=== PATIENT | female | born 1940 | race Caucasian/White ===

== ENCOUNTER 2021-04-21 18:37 | Inpatient (IN) | payer MEDICARE, OTHER, SELFPAY ==
[2021-04-21] VITALS (13 sets, daily range): BP systolic 127–156; BP diastolic 55–83; PULSE 54–62; RESP 14–22; TEMP 35.7–37; O2SAT 97–100; BMI 26.4
--- NOTE | 2021-04-21 18:44 | ECG_ITS ---
Measurements Intervals [place] Rate: 53 P: 127 ME: 193 QRS: 185 QRSD: 86 T: 165 QT: 482 QTc: 454 Interpretive Statements SINUS BRADYCARDIA ARM LEADS REVERSED INCOMPLETE RIGHT BUNDLE BRANCH BLOCK BASELINE ARTIFACT- I, II, AVR BORDERLINE ECG Electronically Signed On 04-22-2021 7:29:25 CDT by Christopher Berg D.O.
[2021-04-21 19:16] LABS: Basophils Absolute Auto 0.1 K/mm3 (0.0-0.1); Basophils Percent Auto 1.4 % (0.2-1.2); Eosinophils Absolute Auto 0.2 K/mm3 (0-0.3); Eosinophils Percent Auto 3.4 % (0-4.4); Hematocrit 22.7 % (37.0-47.0); Immature Granulocyte Absolute 0.01 K/mm3 (0.00-0.031); Immature Granulocyte Percent A 0.2 % (0-0.5); Lymphocytes Absolute Auto 1.47 K/mm3 (0.9-3.2); Lymphocytes Percent Auto 25.3 % (18.3-44.2); Mean Corpuscular HGB Conc 24.7 g/dl (32-36); Mean Corpuscular Hemoglobin 15.6 pg (26-34); Mean Corpuscular Volume 63.1 fl (80-100); Mean Platelet Volume 8.7 fl (7.4-10.4); Monocytes Absolute Auto 0.8 K/mm3 (0.1-0.6); Neutrophils Absolute Auto 3.2 K/mm3 (1.3-6.7); Neutrophils Percent Auto 55.7 % (45.5-73.1); Nucleated Red Blood Cells Perc 0.5 % (0.0-0.2); Platelet Count Result 325 k/mm3 (150-375); Red Cell Distribution Width 21.3 % (11.5-14.5); White Blood Count 5.8 K/mm3 (4.5-10.0)
[2021-04-21 19:25] LABS: Hemoglobin 5.6 g/dL (12.0-15.0); Platelet Estimate Adequate (Adequate)
[2021-04-21 19:26] LABS: Alanine Aminotransferase 34 U/L (4-35); Albumin Level 4.2 g/dL (3.5-5.1); Alkaline Phosphatase 75 U/L (38-126); Anion Gap 7 mmol/L (8-16); Anisocytosis 2+ (NORMAL); Aspartate Amino Transferase 37 U/L (14-36); Bilirubin,Total 0.6 mg/dL (0.2-1.3); Blood Urea Nitrogen 16 mg/dL (7-17); Calcium 8.8 mg/dL (8.4-10.2); Carbon Dioxide 23 mmol/L (22-30); Chloride 104 mmol/L (98-107); Estimated CRCL calculation 30 ml/min; Estimated Glomerular Filt Rate 43; Glucose 119 mg/dL (65-110); Hypochromasia 2+ (NORMAL); Potassium 4.3 mmol/L (3.4-5.0); Sodium 134 mmol/L (137-145)
[2021-04-21 19:29] LABS: Ovalocytes 2+ (NORMAL); Stomatocytes 1+ (NORMAL); Target Cells 1+ (NORMAL); Tear Drop Cells 1+ (NORMAL)
--- NOTE | 2021-04-21 19:48 | ED.GENADULT ---
HPI - General Adult General Chief complaint: Recheck/Abnormal Lab/Rx Stated complaint: low blood count Time Seen by Provider: 04/21/21 19:35 Source: patient History of Present Illness HPI narrative: Patient is 81 y/o female complaining of severe SOB for a while. She states that exertion like going upstairs aggravates her SOB. She has no cough, chest pain or abdominal pain. She had labs done yesterday and she was told by her doctor to come here for low H/H. She is on Xarelto for A fib. She did not notice any bleeding. She denies blood in stool or dark stool. Related Data Home Medications Medication Instructions Recorded Confirmed atorvastatin 20 mg tablet 20 mg PO DAILY 12/06/19 04/30/21 dronedarone 400 mg tablet 400 mg PO BID tablet 12/06/19 04/30/21 losartan 50 mg tablet 50 mg PO DAILY 12/06/19 04/30/21 metoprolol tartrate 50 mg tablet 75 mg PO BID tablet 12/06/19 04/30/21 Allergies Allergy/AdvReac Type Severity Reaction Status Date / Time lisinopril Allergy Mild Cough Verified 04/30/21 10:32 cefprozil Allergy Unknown Rash Verified 04/30/21 10:32 Review of Systems Constitutional: Constitutional: Denies chills, Denies fever(s), Denies headache(s) and Reports weakness Eyes: Eyes: Denies blurry vision ENT: Denies headache(s) and Denies neck pain Cardiovascular: Cardiovascular: Denies chest pain and Reports dyspnea Respiratory: Respiratory: Denies cough and Reports dyspnea Gastrointestinal: Gastrointestinal: Denies abdominal pain, Denies diarrhea, Denies nausea and Denies vomiting Genitourinary: Genitourinary: Denies hematuria and Denies dysuria Musculoskeletal: Musculoskeletal: Denies back pain and Denies neck pain Neurologic: Denies headache(s) and Reports weakness PMFSH Past Medical History Medical History (Updated 04/30/21 @ 14:57 by Zoë Polanco MD) Acute blood loss anemia Bunion 1970 Cancer of breast 1991 Gastric ulcer Hx of retirement use of blood thinners Migraine aura without headache Paroxysmal atrial fibrillation Unspecified vitamin D deficiency Surgical History Surgical History H/O lumpectomy 1992 H/O nasal septoplasty Hx of hysterectomy 1974 Family History Family History Mother Depression Family history of glaucoma Hypertension Patient's mother is , Onset Age: 94 Family history of cardiovascular disease Father Patient's father is Social History Social History Alcohol intake: never Substance use: never Gender identity (if verbalized by the patient): Female Spiritual care concerns: No Exam Const: General: no acute distress and well developed Orientation/consciousness: oriented to person, oriented to place, oriented to time and patient oriented x3 HENMT: Head: normocephalic Ears: external ears normal General nose exam: Normal external nose present Eyes: General: appearance normal, both eyes and all related structures Conjunctivae: conjunctivae normal Neck: Neck: normal visual inspection and full ROM Chest: Chest palpation & inspection: normal inspection of the chest and no tenderness Resp: Effort & Inspection: normal respiratory effort Auscultation: clear to auscultation bilaterally Cardio: Rate: regular rate Rhythm: regular rhythm GI: GI Palp: No abdominal tenderness and Yes Soft to palpation Skin: General skin exam: normal color and turgor normal Neuro: General: oriented to person, oriented to place, oriented to time and patient oriented x3 Cognition (Neuro): normal cognition Extrem: General: normal to inspection, full ROM and no pedal edema Psych: Appearance: grossly normal Mental Status: mental status grossly normal Affect: normal affect Course Consultations Consultation #1: Discussed with Dr. Bragg, who agrees to admit. Date: 04/21/21 Time
[2021-04-21] MEDS: SODIUM CHLORIDE 0.9% IV 250 ML 30 ML IV CONT (20:42)
[2021-04-21] MEDS: TUBING, BLOOD PLUM PUMP TUBING 1 EACH XX (20:42)
--- NOTE | 2021-04-21 21:14 | PM.IMHP ---
H&P: HPI History of Present Illness Date/Time: 04/21/21 21:14 Chief Complaint: LOW HEMOGLOBIN Narrative: THIS IS AN 81-YEAR-OLD FEMALE WITH PAST MEDICAL HISTORY SIGNIFICANT FOR ATRIAL FIBRILLATION RATE CONTROL AND ANTICOAGULATED, HYPERTENSION, DYSLIPIDEMIA. PATIENT PRESENTED TO HER PRIMARY CARE PHYSICIAN'S OFFICE DUE TO FATIGUE LACK OF ENERGY AND DIZZINESS SHORTNESS OF BREATH WITH MINIMAL EXERTION. 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 AFTER OBTAINING THESE RESULTS HER PRIMARY CARE PHYSICIAN AFTER TO COME TO THE EMERGENCY ROOM REPEATED HEMOGLOBIN IN THE EMERGENCY ROOM SHOW EQUALLY LOW VALUE. Review of Systems Review of Systems: Narrative: ABNORMAL LAB WORK Constitutional: Constitutional: Denies chills, Reports fatigue, Denies fever(s) and Reports lethargy Eyes: Eyes: Denies change in vision ENT: Denies dysphagia, Denies nasal congestion, Denies nasal discharge, Denies nasal obstruction and Denies odynophagia Cardiovascular: Cardiovascular: Denies chest pain with activity, Denies syncope, Denies irregular heart rhythm, Denies radiating jaw, neck or arm pain, Denies palpitations, Reports dyspnea and Reports dyspnea on exertion Respiratory: Respiratory: Denies cough Gastrointestinal: Gastrointestinal: Denies melena, Denies dyspepsia, Denies heartburn, Denies diarrhea, Denies nausea, Denies vomiting and Denies hematemesis Genitourinary: Genitourinary: Reports no additional female genitourinary complaints Musculoskeletal: Musculoskeletal: Reports no additional musculoskeletal complaints Integumentary/Breasts: Skin/Breast: Reports system reviewed and no additional complaints, except as docu Neurologic: Reports system reviewed and no additional complaints, except as documented Psychiatric: Psychiatric: Reports no additional psychiatric complaints Endocrine: Endocrine: Reports no additional endocrine complaints Hematologic/Lymphatic: Hematologic/Lymphatic: Reports no additional hematologic/lymphatic complaints Allergic/Immunologic: Allergic/Immunologic: Reports no additional allergic/immunologic complaints PMF Past Medical History Medical History Acute blood loss anemia Bunion 1970 Cancer of breast 1991 Gastric ulcer Migraine aura without headache Paroxysmal atrial fibrillation Unspecified vitamin D deficiency Surgical History Surgical History H/O lumpectomy 1992 H/O nasal septoplasty Hx of hysterectomy 1973 Family History Family History Mother Depression Family history of glaucoma Hypertension Patient's mother is , Onset Age: 94 Family history of cardiovascular disease Father Patient's father is Social History Social History Smoking status: Never smoker Alcohol intake: never Substance use: never Gender identity (if verbalized by the patient): Female Sexual Orientation (if Verbalized by the Patient): Straight or Heterosexual Spiritual care concerns: No Meds Home Medications and Allergies Home Medications Medication Instructions Recorded Confirmed Type atorvastatin 20 mg tablet 20 mg PO DAILY 12/06/19 04/03/21 History dronedarone 400 mg tablet 400 mg PO BID tablet 12/06/19 04/03/21 History losartan 50 mg tablet 50 mg PO DAILY 12/06/19 04/03/21 History metoprolol tartrate 50 mg tablet 75 mg PO BID tablet 12/06/19 04/03/21 History rivaroxaban 20 mg tablet See Rx Instructions .ROUTE 12/19/20 04/03/21 Rx .COMPLEX #90 tablet Allergies Allergy/AdvReac Type Severity Reaction Status Date / Time lisinopril Allergy Mild Cough Verified 04/21/21 20:57 cefprozil Allergy Unknown Rash Verif
--- NOTE | 2021-04-21 22:34 | ADMGEN ---
This patient, Yadi Bustos, was admitted to Medical Room 342-01. Patient/family oriented to hospital policies and general routines including ID bracelet, bed and alarms, visiting hours, pain management, procedures, bathroom and other care routines, personal items, smoking policy, room service/diet, and visiting hours. Information on how to activate the Rapid Response Team has been discussed. Patient/Family are encouraged to report perceived risks to care and to ask questions if they do not understand what they are told or what they should do.
[2021-04-22] VITALS (14 sets, daily range): BP systolic 122–157; BP diastolic 54–85; PULSE 52–70; RESP 15–67; TEMP 35.7–36.6; O2SAT 96–100
[2021-04-22] MEDS: METOPROLOL TARTRATE 25 MG TABLET 75 MG PO (08:39)
[2021-04-22] MEDS: ATORVASTATIN 20 MG TABLET PO (08:39)
[2021-04-22] MEDS: LOSARTAN POTASSIUM 50 MG TABLET PO (08:40)
[2021-04-22] MEDS: DRONEDARONE HCL 400 MG TABLET PO (08:40)
[2021-04-22 09:00] LABS: Hematocrit 31.4 % (37.0-47.0); Mean Corpuscular HGB Conc 28.7 g/dl (32-36); Mean Corpuscular Hemoglobin 19.5 pg (26-34); Mean Platelet Volume 8.6 fl (7.4-10.4); Platelet Count Result 291 k/mm3 (150-375); Red Blood Count 4.62 M/mm3 (4.2-5.4); Red Cell Distribution Width 25.8 % (11.5-14.5); White Blood Count 7.4 K/mm3 (4.5-10.0)
[2021-04-22 09:13] LABS: Alanine Aminotransferase 29 U/L (4-35); Alkaline Phosphatase 70 U/L (38-126); Anion Gap 9 mmol/L (8-16); Aspartate Amino Transferase 29 U/L (14-36); Bilirubin,Total 0.9 mg/dL (0.2-1.3); Blood Urea Nitrogen 11 mg/dL (7-17); Carbon Dioxide 23 mmol/L (22-30); Chloride 105 mmol/L (98-107); Estimated CRCL calculation 32 ml/min; Estimated Glomerular Filt Rate 47; Glucose 99 mg/dL (65-110); Potassium 4.2 mmol/L (3.4-5.0); Sodium 137 mmol/L (137-145)
--- NOTE | 2021-04-22 10:31 | PM.IMPN ---
Progress Note: A&P Assessment and Plan (1) Acute blood loss anemia: Code(s): D62 - Acute posthemorrhagic anemia Status: Acute Assessment and Plan: H/H trend 5.7, 5.6, 9.0 Received 2 units of PRBC (04/22/21) hemoglobin up to 9.0 Will continue to trend H/H Q4hr GI Consult thank you for you recommendation transfuse as needed Hold Rivaroxaban 20mg PO daily Cardiac tele monitor Q4hr VS NPO diet Supposed to go to EGD today, however, did eat this morning (2) Anemia: Code(s): D64.9 - Anemia, unspecified Status: Acute Assessment and Plan: H/H 5.6/27.7 MCV 68.0 Patient stated that she craves water will repeat anemia labs Will supplement as needed. (3) Paroxysmal atrial fibrillation: Code(s): I48.0 - Paroxysmal atrial fibrillation Status: Acute Assessment and Plan: Rate controlled Continue home metoprolol 75 mg PO BID Hold rivaroxaban 20mg PO until source of bleed is noted (4) Nonrheumatic mitral (valve) insufficiency: Code(s): I34.0 - Nonrheumatic mitral (valve) insufficiency Status: Acute Assessment and Plan: Follow up as outpatient (5) Mixed hyperlipidemia: Code(s): E78.2 - Mixed hyperlipidemia Status: Acute Assessment and Plan: Atorvastatin 20mg PO daily Lipid panel in the am (6) Laryngopharyngeal reflux disease: Code(s): K21.9 - Gastro-esophageal reflux disease without esophagitis Status: Acute Assessment and Plan: PPIs if needed Subjective Date/time seen: 04/22/21 09:23 Interval history: This is an 81 year old female with a past medical history of a. fib, HTN, HLD, who presented to the ED with complaints of shortness of breath with activity. She stated that it started about a month ago and she really noticed it getting worse when she would come up the stairs she would be panting or just general walking throughout her house. She also stated that she has been craving water for the last several months, to the extreme that she would wake up in the middle of the night just to get some water. She denies chest pain, palpitations, nausea, vomiting, constipation, diarrhea, abdominal pain, headache, or abnormal swelling. She denies hematochezia or hematoemisis but did state that he stools have been darker. She does take Xarelto for chronic AFib. Patient also sees a timber sizer Dr. Minaya who she stated that she has talked to about the shortness of breath. Patient has also gotten 2 units of blood and now complain of feeling a little woozy, but not dizzy or light headed. Review of Systems Review of Systems: All systems reviewed & are unremarkable except as noted in HPI and below Exam Const: General: cooperative, healthy appearing, comfortable, no acute distress, well developed, alert, awake and Physically active Nutritional Appearance: average body habitus and well nourished Orientation/consciousness: oriented to person, oriented to place, oriented to time and patient oriented x3 Limitations: physical limitations (blood loss) HENMT: Head: normal to inspection, normocephalic and atraumatic Ears: hearing grossly normal bilaterally and external ears normal General nose exam: Normal external nose present, Normal nares present and Normal nasal mucous membranes and turbinates present Face and sinus: normal facial exam Mouth: Yes Normal oral and palatal mucosa present, Yes lip normal, Yes tongue normal and Yes moist mucous membranes Teeth and gingiva: dentition normal Eyes: General: appearance normal, both eyes and all related structures Sclera: sclerae normal Pupils: Equal, round and reactive pupils present EOM: EOMs intact bilaterally Neck: Neck: full ROM, no lymphadenopathy and no JVD Thyroid: thyroid normal Lymphatic: no lymphadenopathy noted Resp: Effort & Inspection: normal respiratory effort and able to speak in complete sentence
[2021-04-22 11:52] LABS: Hematocrit 33.3 % (37.0-47.0)
[2021-04-22 11:55] LABS: Lactate Dehydrogenase 410 U/L (313-618)
[2021-04-22 12:02] LABS: Transferrin 337 mg/dL (206-381)
[2021-04-22] MEDS: LACTATED RINGERS 1,000 ML 150 ML IV CONT (12:04)
--- NOTE | 2021-04-22 12:17 | WPDANESEPPF ---
Anes - Initial Pre Proc Eval Procedure: Operation Date: 04/22/21 13:30 Proposed Procedures p Esophagogastroduodenoscopy - Joey Nava MD Date/Time: 04/22/21 12:17 Surgeon: Kathie rBagg MD Pre Op Diagnosis: Anemia Patient Data Age: 81 Gender: F Height: 1.68 m Weight: 74.2 kg Last Vital Signs Temp 36.6 C 04/22/21 12:02 Pulse 59 L 04/22/21 12:02 Resp 18 04/22/21 12:02 BP 157/72 H 04/22/21 12:02 Pulse Ox 98 04/22/21 12:02 Allergies Allergy/AdvReac Type Severity Reaction Status Date / Time lisinopril Allergy Mild Cough Verified 04/22/21 11:53 cefprozil Allergy Unknown Rash Verified 04/22/21 11:53 Home Medications Medication Instructions Recorded Confirmed Type atorvastatin 20 mg tablet 20 mg PO DAILY 12/06/19 04/21/21 History dronedarone 400 mg tablet 400 mg PO BID tablet 12/06/19 04/21/21 History losartan 50 mg tablet 50 mg PO DAILY 12/06/19 04/21/21 History metoprolol tartrate 50 mg tablet 75 mg PO BID tablet 12/06/19 04/21/21 History rivaroxaban 20 mg tablet See Rx Instructions .ROUTE 12/19/20 04/21/21 Rx .COMPLEX #90 tablet Laboratory Tests 04/21/21 04/21/21 04/21/21 19:04 19:04 19:04 WBC 5.8 K/mm3 K/mm3 (4.5-10.0) RBC 3.60 M/mm3 L M/mm3 (4.2-5.4) Hgb 5.6 g/dL L* g/dL (12.0-15.0) Hct 22.7 % L % (37.0-47.0) MCV 63.1 fl L fl (80-100) MCH 15.6 pg L pg (26-34) MCHC 24.7 g/dl L g/dl (32-36) RDW 21.3 % H % (11.5-14.5) Plt Count 325 k/mm3 k/mm3 (150-375) MPV 8.7 fl fl (7.4-10.4) Immature Gran % (Auto) 0.2 % % (0-0.5) Neut % (Auto) 55.7 % % (45.5-73.1) Lymph % (Auto) 25.3 % % (18.3-44.2) Wolfe % (Auto) 14.0 % H % (2.6-8.5) Eos % (Auto) 3.4 % % (0-4.4) Baso % (Auto) 1.4 % H % (0.2-1.2) Lymph # (Auto) 1.47 K/mm3 K/mm3 (0.9-3.2) Wolfe # (Auto) 0.8 K/mm3 H K/mm3 (0.1-0.6) Eos # (Auto) 0.2 K/mm3 K/mm3 (0-0.3) Baso # (Auto) 0.1 K/mm3 K/mm3 (0.0-0.1) Abs Immat Gran (auto) 0.01 K/mm3 K/mm3 (0.00-0.031) Absolute Neuts (auto) 3.2 K/mm3 K/mm3 (1.3-6.7) Absolute Nucleated RBC 0.0 K/mm3 K/mm3 (0.0-0.012) Nucleated RBC % 0.5 % H % (0.0-0.2) Platelet Estimate Adequate (Adequate) Hypochromasia 2+ (NORMAL) Anisocytosis 2+ (NORMAL) Target Cells 1+ (NORMAL) Tear Drop Cells 1+ (NORMAL) Ovalocytes 2+ (NORMAL) Stomatocytes 1+ (NORMAL) Absolute Retic Percent Retic Immature Retic Fraction Retic Hgb Content Sodium 134 mmol/L L mmol/L (137-145) Potassium 4.3 mmol/L mmol/L (3.4-5.0) Chloride 104 mmol/L mmol/L (98-107) Carbon Dioxide 23 mmol/L mmol/L (22-30) Anion Gap 7 mmol/L L mmol/L (8-16) BUN 16 mg/dL mg/dL (7-17) Creatinine 1.20 mg/dL H mg/dL (0.7-1.0) Estim Creat Clear Calc 30 ml/min ml/min Estimated GFR 43 L (59 - ) Glucose 119 mg/dL H mg/dL (65-110) Calcium 8.8 mg/dL mg/dL (8.4-10.2) Iron TIBC % Saturation Transferrin Ferritin Total Bilirubin 0.6 mg/dL mg/dL (0.2-1.3) Direct Bilirubin AST 37 U/L H U/L (14-36) ALT 34 U/L U/L (4-35) Alkaline Phosphatase 75 U/L U/L (38-126) Lactate Dehydrogenase Total Protein 7.0 g/dL g/dL (6.3-8.2) Albumin 4.2 g/dL g/dL (3.5-5.1) Vitamin B12 Folate TSH (Reflex) Blood Type A Negative Antibody Screen Negative Crossmatch See Detail 04/22/21 04/22/21 04/22/21 08:39 08:39
[2021-04-22 12:19] LABS: Iron 17 ug/dL (37-170)
[2021-04-22 12:32] LABS: Percent Iron Saturation 4 % (20-50)
[2021-04-22 12:56] LABS: Ferritin 5.47 ng/mL (11.1-264)
--- NOTE | 2021-04-22 13:28 | WPDGICN ---
Assessment and Plan Assessment and plan (1) Gastric ulcer: Qualifiers: Gastric ulcer chronicity: acute Gastric ulcer complication status: with hemorrhage Qualified Code(s): K25.0 - Acute gastric ulcer with hemorrhage Code(s): K25.9 - Gastric ulcer, unspecified as acute or chronic, without hemorrhage or perforation Status: Acute Assessment and Plan: most likely etiology of symptomatic anemia- she says that has not been using ppi anymore and she also has been using xarelto for her afib resume protonix bid will proceed with urgent egd, if no major findings then consider colonoscopy (never had one and only using cologuard) (2) Acute blood loss anemia: Code(s): D62 - Acute posthemorrhagic anemia Status: Acute Assessment and Plan: s/p blood transfusion, monitor for signs of bleeding and h/h (3) Paroxysmal atrial fibrillation: Code(s): I48.0 - Paroxysmal atrial fibrillation Status: Acute Assessment and Plan: controlled (4) Hx of chcf use of blood thinners: Code(s): Z92.29 - Personal history of other drug therapy Status: Acute Assessment and Plan: xarelto on hold GI Consult Note Consult date/time: 04/22/21 13:28 Reason for consult: CORRIE, history of bleeding gastric ulcer HPI: Yadi Bustos is a 81 year old female with A fib on xarelto for over 5 years, HTN and bleeding gastric ulcer in 2019, H pylori was negative. She took PPI but not using any longer and she is back on her xarelto. She went to see her doctor after feeling generalized weakness with fatigue and short of breath on exertion. Her doctor ordered blood work and showed hb 5.9, admitted to the hospital. Denies overt GIB. She never had a colonoscopy but has been doing cologuard for colon cancer screening. Review of Systems Constitutional: Constitutional: Reports fatigue, Denies headache(s) and Reports weakness Eyes: Eyes: Denies blurry vision ENT: Reports Normal hearing present, Denies headache(s) and Denies neck pain Cardiovascular: Cardiovascular: Denies chest pain and Denies dyspnea Respiratory: Respiratory: Denies cough Gastrointestinal: Gastrointestinal: Reports no additional gastrointestinal complaints Genitourinary: Genitourinary: Denies dysuria Musculoskeletal: Musculoskeletal: Denies neck pain Integumentary/Breasts: Skin/Breast: Denies dry skin Neurologic: Reports Normal hearing present, Denies headache(s) and Denies weakness Psychiatric: Psychiatric: Denies anxiety Endocrine: Endocrine: Denies change in body appearance Hematologic/Lymphatic: Hematologic/Lymphatic: Denies easy bleeding Allergic/Immunologic: Allergic/Immunologic: Denies urticaria PMFSH Past Medical History Medical History (Updated 04/22/21 @ 15:33 by Joey Nava MD) Acute blood loss anemia Bunion 1970 Cancer of breast 1991 Gastric ulcer Hx of chcf use of blood thinners Migraine aura without headache Paroxysmal atrial fibrillation Unspecified vitamin D deficiency Surgical History Surgical History H/O lumpectomy 1992 H/O nasal septoplasty Hx of hysterectomy 1973 Family History Family History Mother Depression Family history of glaucoma Hypertension Patient's mother is , Onset Age: 94 Family history of cardiovascular disease Father Patient's father is Social History Social History Smoking status: Never smoker Alcohol intake: never Substance use: never Gender identity (if verbalized by the patient): Female Sexual Orientation (if Verbalized by the Patient): Straight or Heterosexual Spiritual care concerns: No Meds Home Medications and Allergies Home Medications Medication Instructions Recorded Confirmed Type atorvastatin 20 mg tab
[2021-04-22 15:37] LABS: Immature Reticulocyte Fraction 21.2 % (3.0-15.9); Reticulocyte Hemoglobin Conten 16.5 pg (28.2-35.7); Reticulocyte Percent 1.91 % (0.7-4.3); Reticulocytes Absolute 0.07 B/L (32.2-175.7)
[2021-04-22 16:09] LABS: Hematocrit 30.4 % (37.0-47.0); Hemoglobin 8.5 g/dL (12.0-15.0)
--- NOTE | 2021-04-22 17:19 | PM.DS ---
DS: Admitting Diagnosis Admitting Diagnosis Admitting Diagnosis: GI bleed DS: Discharge Diagnosis Discharge Diagnosis (1) Acute blood loss anemia: Code(s): D62 - Acute posthemorrhagic anemia Status: Acute Assessment and Plan: H/H trend 5.7, 5.6, 9.0 Received 2 units of PRBC (04/22/21) hemoglobin up to 9.0 Will continue to trend H/H Q4hr GI Consult thank you for you recommendation transfuse as needed Hold Rivaroxaban 20mg PO daily Cardiac tele monitor Q4hr VS NPO diet Supposed to go to EGD today, however, did eat this morning patient will need Protonix 40 mg p.o. daily follow-up with GI for colonoscopy (2) Anemia: Code(s): D64.9 - Anemia, unspecified Status: Acute Assessment and Plan: H/H 5.6/27.7 MCV 68.0 Patient stated that she craves water will repeat anemia labs Will supplement as needed. patient will need to be started on iron p.o. daily (3) Paroxysmal atrial fibrillation: Code(s): I48.0 - Paroxysmal atrial fibrillation Status: Acute Assessment and Plan: Rate controlled Continue home metoprolol 75 mg PO BID Hold rivaroxaban 20mg PO until source of bleed is noted (4) Nonrheumatic mitral (valve) insufficiency: Code(s): I34.0 - Nonrheumatic mitral (valve) insufficiency Status: Acute Assessment and Plan: Follow up as outpatient (5) Mixed hyperlipidemia: Code(s): E78.2 - Mixed hyperlipidemia Status: Acute Assessment and Plan: Atorvastatin 20mg PO daily Lipid panel in the am (6) Laryngopharyngeal reflux disease: Code(s): K21.9 - Gastro-esophageal reflux disease without esophagitis Status: Acute Assessment and Plan: PPIs if needed DS: Summary Hospital Course Hospital Course: This is an 81 year old female with a past medical history of a. fib, HTN, HLD, who presented to the ED with complaints of shortness of breath with activity. patient went to the physician's office which her hemoglobin was noted to be 5.6 it was advised that she came to the hospital when she got to the hospital her hemoglobin was 5 0.6-5.7 patient was given 2 units of packed red blood cells. After the 2 units of packed red blood cells her H&H came up to 9/33.3. after EGD which found a gastric ulcer, erosive gastritis. Anemia studies were also done which showed patient is low on iron. Patient will go home on iron 325 mg p.o. b.i.d. she will also need to take Protonix 40 mg p.o. b.i.d. she will also need to hold her Xarelto for 1 week. And she will need to follow-up with GI for colonoscopy. Today patient did talk about the need to consistently drink water increase zit will get up in the middle night to get it. I did talk to the patient about the iron deficiency anemia. Patient will need to follow-up with primary care provider in 1-2 weeks. Status at Discharge Functional status at discharge: independent ambulation Overall status at discharge: patient is back to baseline Time Spent with Patient Time attestation: Total time spent providing and/or coordinating discharge services: 48 minutes Specific discharge activities: chart review, diagnostic testing, lab review, documentation, physical exam, and plan of care. Exam Const: General: cooperative, healthy appearing, comfortable, no acute distress, well developed, alert, awake and Physically active Nutritional Appearance: average body habitus and well nourished Orientation/consciousness: oriented to person, oriented to place, oriented to time and patient oriented x3 Limitations: physical limitations (blood loss) HENMT: Head: normal to inspection, normocephalic and atraumatic Ears: hearing grossly normal bilaterally and external ears normal General nose exam: Normal external nose present, Normal nares present and Normal nasal mucous membranes and turbinates present Face and sinus: normal facial exam Mouth: Yes
[2021-04-22 18:17] LABS: Folic Acid 16.6 ng/mL (2.76->20)
== END 2021-04-22 18:20 | disposition home or self-care (01) | DRG 378 ==
LOC: ANHED 19:57 → ANH3MED 21:53
PROVIDERS: Internal Medicine Gastroenterology; Nurse Practitioner; Admitting Provider Internal Medicine; Emergency Provider Emergency Medicine; PCP Family Medicine; Visit Provider Internal Medicine
PROC: 0DJ08ZZ Inspection of Upper Intestinal Tract, Via Natural or Artificial Opening Endoscopic (ICD-10-PCS; CPT 43235; principal; 2021-04-22 13:30)
DX: K25.0 Acute gastric ulcer with hemorrhage (principal); D62 Acute posthemorrhagic anemia; D50.9 Iron deficiency anemia, unspecified; K29.70 Gastritis, unspecified, without bleeding; K44.9 Diaphragmatic hernia without obstruction or gangrene; K21.9 Gastro-esophageal reflux disease without esophagitis; I10 Essential (primary) hypertension; I48.0 Paroxysmal atrial fibrillation; I34.0 Nonrheumatic mitral (valve) insufficiency; E78.2 Mixed hyperlipidemia; Z79.01 Long term (current) use of anticoagulants; Z79.899 Other long term (current) drug therapy; Z85.3 Personal history of malignant neoplasm of breast
CPT/HCPCS: 36415; 36430; 80053; 82248; 82607; 82728; 82746; 83540; 83550; 83615; 84443; 84466; 85014; 85018; 85025; 85027; 85044; 85046; 86850; 86900; 86901; 86920; 88305; 93005; 96360; 96361; 99285; A9270; G0378; J2001; J2704; J7050; J7120; P9016

== ENCOUNTER 2022-01-21 14:44 | Outpatient (CLI) | payer MEDICARE, SELFPAY ==
--- NOTE | ~2022-01-21 | DEXA_ITS ---
Bone Density Report Name: LUISA MAX Age: 81 Sex: Female Ethnicity: White Date of : 1940 Indication: osteopenia; height loss; prior fracture; cancer; hysterectomy; postmenopausal Referring Provider: GRACIELA HOWE Study: Bone densitometry was performed. Exam Date: January 21, 2022 Accession number: [id number] Bone Density: Region BMD T-score Z-score Classification AP Spine(L1-L4) 0.965 -0.7 2.1 Normal Femoral Neck (Left) 0.611 -2.1 0.3 Osteopenia Total Hip (Left) 0.786 -1.3 1.0 Osteopenia Femoral Neck (Right) 0.582 -2.4 0.1 Osteopenia Total Hip (Right) 0.768 -1.4 0.8 Osteopenia Total Hip Mean 0.777 -1.4 0.9 Osteopenia World Health Organization criteria for BMD impression classify patients as: Normal (T-score at or above -1.0), Osteopenia (T-score between -1.0 and -2.5), or Osteoporosis (T-score at or below -2.5). 10-year Fracture Risk(1): Major Osteoporotic Fracture 25% Hip Fracture 8.0% Reported Risk Factors: [place] (), Neck BMD=0.582, BMI=26.2, previous fracture (1) FRAX(R) Version 3.08. Fracture probability calculated for an untreated patient. Fracture probability may be lower if the patient has received treatment. Previous Exams: Region Exam Age BMD T-score BMD Change BMD Change Date g/cm2 vs Baseline vs Previous AP Spine (L1-L4) 01/21/2022 81 0.965 -0.7 0.043 (4.6%)* 0.043 (4.6%)* 10/28/2016 76 0.922 -1.1 Total Hip(Left) 01/21/2022 81 0.786 -1.3 -0.020 (-2.5%) -0.020 (-2.5%) 10/28/2016 76 0.806 -1.1 Total Hip(Right) 01/21/2022 81 0.768 -1.4 -0.052 (-6.3%) -0.052 (-6.3%) 10/28/2016 76 0.820 -1.0 *Denotes significance at 95% confidence level, LSC for AP Spine = 0.022 g/cm2, LSC for Total Hip = 0.027 g/cm2 Clinical Information Provided by Patient: Has had a low trauma fracture Has used the following medications: Calcium Has the following medical conditions: Cancer, Hysterectomy Patient maximum height was 66 Menopause Age: 43 No regular weight bearing exercise Onset of menses at age 13 Number of children 3 Impression: The patient has low bone mass, based on the Right Femoral Neck T-score. The patient has an estimated ten-year risk of hip fracture of 8% and an estimated ten-year risk of major fracture of 25%, based on the WHO FRAX algorithm. The patient has risk factors, including: previous fracture. The BMD for the Total Hip(Right) decreased, changing by -6.3% s
--- NOTE | ~2022-01-21 | MM_ITS ---
EXAMINATION: MM screening jesús BI w laura HISTORY: Screening mammogram TECHNIQUE: Craniocaudal and mediolateral oblique 3-D tomosynthesis images were obtained and synthetic 2-D images were generated. CAD analysis was submitted and interpreted. COMPARISON: No prior mammogram is available for comparison at this institution. BREAST PARENCHYMAL COMPOSITION: There are scattered areas of fibroglandular density. FINDINGS: There is volume loss of the left breast and a large prominent central calcification and norma rounding scarring, consistent with postoperative change from partial mastectomy for left breast cance r. Otherwise no suspicious mass, architectural distortion, malignant calcification, skin thickening or r etraction of either breast is evident. IMPRESSION: 1. Status post left partial mastectomy and radiotherapy for breast cancer. No mammographic evidence o f malignancy. 2. Recommend routine screening mammography in one year. BI-RADS Category 2: Benign finding(s). Reviewed, dictated and finalized at location A. IMPRESSION: 1. Status post left partial mastectomy and radiotherapy for breast cancer. No m ammographic evidence of malignancy. 2. Recommend routine screening mammography in one year. BI-RADS Category 2: Benign finding(s).
== END 2022-01-21 14:45 | disposition home or self-care (01) ==
PROVIDERS: PCP Family Medicine; Visit Provider Family Medicine
DX: Z12.31 Encounter for screening mammogram for malignant neoplasm of breast (principal); M81.0 Age-related osteoporosis without current pathological fracture; M85.852 Other specified disorders of bone density and structure, left thigh; M85.851 Other specified disorders of bone density and structure, right thigh
CPT/HCPCS: 77063; 77067; 77080

== ENCOUNTER 2022-04-29 09:10 | Outpatient (CLI) | payer MEDICARE, SELFPAY ==
[2022-04-29 19:21] LABS: Basophils Absolute Auto 0.1 K/mm3 (0.0-0.1); Basophils Percent Auto 1.5 % (0.2-1.2); Eosinophils Absolute Auto 0.4 K/mm3 (0-0.3); Eosinophils Percent Auto 6.1 % (0-4.4); Hematocrit 39.7 % (37.0-47.0); Hemoglobin 11.6 g/dL (12.0-15.0); Immature Granulocyte Absolute 0.02 K/mm3 (0.00-0.031); Immature Granulocyte Percent A 0.3 % (0-0.5); Lymphocytes Absolute Auto 1.93 K/mm3 (0.9-3.2); Lymphocytes Percent Auto 32.5 % (18.3-44.2); Mean Corpuscular HGB Conc 29.2 g/dl (32-36); Mean Corpuscular Hemoglobin 25.3 pg (26-34); Mean Corpuscular Volume 86.7 fl (80-100); Mean Platelet Volume 9.2 fl (7.4-10.4); Monocytes Absolute Auto 0.8 K/mm3 (0.1-0.6); Neutrophils Absolute Auto 2.8 K/mm3 (1.3-6.7); Neutrophils Percent Auto 46.6 % (45.5-73.1); Platelet Count Result 265 k/mm3 (150-375); Red Blood Count 4.58 M/mm3 (4.2-5.4); Red Cell Distribution Width 15.8 % (11.5-14.5); White Blood Count 5.9 K/mm3 (4.5-10.0)
[2022-04-29 19:41] LABS: Hypochromasia 1+ (NORMAL); Ovalocytes 1+ (NORMAL); Platelet Estimate Adequate (Adequate)
== END 2022-04-29 09:11 | disposition home or self-care (01) ==
LOC: ANHGOSHLAB 09:11
PROVIDERS: PCP Family Medicine; Visit Provider Family Medicine
DX: D64.9 Anemia, unspecified (principal)
CPT/HCPCS: 36415; 85025

== ENCOUNTER 2023-01-06 01:09 | Day surgery (SDC) | payer MEDICARE, SELFPAY ==
[2023-01-05 16:02] VITALS: BMI 25.0
[2023-01-06] VITALS (13 sets, daily range): BP systolic 110–145; BP diastolic 55–91; PULSE 46–77; RESP 13–18; TEMP 36.4; O2SAT 96–100; BMI 25.0
--- NOTE | 2023-01-06 07:00 | ECG_ITS ---
Measurements Intervals [place] Rate: 74 P: [place]: 0 QRS: -11 QRSD: 80 T: 28 QT: 410 QTc: 456 Interpretive Statements ATRIAL FIBRILLATION ABNORMAL RHYTHM ECG COMPARED TO ECG 04/21/2021 18:50:32 ATRIAL FIBRILLATION NOW PRESENT Electronically Signed On 01-06-2023 10:46:10 CDT by Amy Guevara M.D.
[2023-01-06 07:36] LABS: Basophils Absolute Auto 0.1 K/mm3 (0.0-0.1); Basophils Percent Auto 1.4 % (0.2-1.2); Eosinophils Absolute Auto 0.4 K/mm3 (0-0.3); Eosinophils Percent Auto 6.6 % (0-4.4); Hematocrit 35.2 % (37.0-47.0); Hemoglobin 10.2 g/dL (12.0-15.0); Immature Granulocyte Absolute 0.02 K/mm3 (0.00-0.031); Immature Granulocyte Percent A 0.3 % (0-0.5); Lymphocytes Absolute Auto 1.54 K/mm3 (0.9-3.2); Lymphocytes Percent Auto 23.2 % (18.3-44.2); Mean Corpuscular Hemoglobin 22.9 pg (26-34); Mean Corpuscular Volume 78.9 fl (80-100); Mean Platelet Volume 8.7 fl (7.4-10.4); Monocytes Absolute Auto 0.8 K/mm3 (0.1-0.6); Monocytes Percent Auto 11.5 % (2.6-8.5); Neutrophils Absolute Auto 3.8 K/mm3 (1.3-6.7); Platelet Count Result 316 k/mm3 (150-375); Red Blood Count 4.46 M/mm3 (4.2-5.4); Red Cell Distribution Width 17.9 % (11.5-14.5); White Blood Count 6.6 K/mm3 (4.5-10.0)
[2023-01-06 07:50] LABS: Anion Gap 4 mmol/L (8-16); Blood Urea Nitrogen 15 mg/dL (7-17); Calcium 8.9 mg/dL (8.4-10.2); Carbon Dioxide 30 mmol/L (22-30); Chloride 103 mmol/L (98-107); Estimated CRCL calculation 35 ml/min; Estimated Glomerular Filt Rate 53; Glucose 93 mg/dL (65-110); Magnesium 2.2 mg/dL (1.6-2.3); Potassium 4.5 mmol/L (3.4-5.0); Sodium 137 mmol/L (137-145)
--- NOTE | 2023-01-06 07:53 | SUR.PREOP ---
Patient answered all orientation questions appropriately, but had to be reminded of the year.
[2023-01-06 07:57] LABS: Anisocytosis 1+ (NORMAL); Hypochromasia 1+ (NORMAL); Ovalocytes 1+ (NORMAL); Platelet Estimate Adequate (Adequate); Schistocytes None Seen (NORMAL)
--- NOTE | 2023-01-06 08:59 | WPDMODSED ---
Moderate Sedation Note-Pt Data Patient Data Diagnosis: Atrial fibrillation Present Complaint: Atrial fibrillation Procedure to be performed/Plan: Moderate sedation Elective cardioversion Allergies Allergy/AdvReac Type Severity Reaction Status Date / Time cefprozil Allergy Unknown Rash Verified 01/06/23 07:11 lisinopril AdvReac Mild Cough Verified 01/06/23 07:11 Home Medications Medication Instructions Recorded Confirmed Type atorvastatin 20 mg tablet 20 mg PO DAILY 12/06/19 01/05/23 History losartan 50 mg tablet 50 mg PO DAILY 12/06/19 01/05/23 History rivaroxaban 20 mg tablet (Xarelto) See Rx Instructions .Route 01/11/22 01/05/23 Rx .COMPLEX #90 tabs pantoprazole 40 mg tablet,delayed 40 mg PO Q12HR #180 tabs 05/10/22 01/06/23 Rx release calcium acetate 667 mg tablet 667 mg PO ONCE 12/02/22 01/05/23 History metoprolol tartrate 25 mg tablet 50 mg PO BID 12/02/22 01/06/23 History dronedarone 400 mg tablet (Multaq) 400 mg PO BID 01/05/23 01/06/23 History polysorbate 80-glycerin 1 %-1 % 1 drp ophthalmic (eye) DAILY PRN 01/05/23 01/05/23 History eye drops Dry Eyes Current Medications: Active Medications Sodium Chloride (Normal Saline Iv) 1,000 mls @ 30 mls/hr IV CONT .Q24H ONESIMO Sedation/Anesthesia: No previous sedation/anesthesia problems (including family history). 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 Migraine aura without headache Paroxysmal atrial fibrillation Unspecified vitamin D deficiency Surgical History Surgical History H/O lumpectomy 1992 H/O nasal septoplasty Hx of hysterectomy 1973 Family History Family History Mother Depression Family history of glaucoma Hypertension Patient's mother is , Onset Age: 94 Family history of cardiovascular disease Father Patient's father is Social History Social History Smoking status: Never smoker Alcohol intake: never Substance use: never Substance use type: does not use Lack of Transportation: No Lack of Food: Never True Current Housing: I Have Housing Concerned About Future Housing: No Difficulty Paying Gas/Electric Bills: No Difficulty Paying for Meds: No Currently Unemployed: No Education: High School Diploma/GED Difficulty w/ Childcare or Family Care: No Living arrangements: with family Gender identity (if verbalized by the patient): Female Sexual Orientation (if Verbalized by the Patient): Straight or Heterosexual Spiritual care concerns: No Mod Sed Physical Exam Physical Exam Pre Procedural Exam: Normal: Appearance, Eyes, Ears, Nose, Neck, Throat, Airway, Lungs, Heart Size, Heart Rate, Neuro Exam, Abdomen, Extremities and Skin and Variation: Heart Rhythm (Irregularly irregular) Hours since solid foods: 12 Hours since liquid intake: 12 Mallampati Classification: class II Internal Medicine - PN: Obj Da Vital Signs Vital Signs: Vital Signs - 24 hr 01/06/23 07:19 Temperature 36.4 C Pulse Rate 77 Respiratory Rate 16 Blood Pressure 128/80 Pulse Oximetry 99 Oxygen Delivery Room Air Meds/Results Medications: Active Medications Generic Name Dose Route Start Last Admin Trade Name Freq PRN Reason Stop Dose Admin Sodium Chloride 1,000 mls @ 30 mls/hr 01/06/23 07:00 Normal Saline Iv IV CONT .Q24H ONESIMO Labs 01/06/23 07:17 01/06/23 07:17 Labs: Laboratory Results - last 24 hr 01/06/23 01/06/23 07:17 07:17 WBC 6.6 RBC 4.46 Hgb 10.2 L Hct 35.2 L MCV 78.9 L MCH 22.9 L MCHC 29.0 L RDW 17.9 H Plt Count 316 MPV 8.7 Immature Gran % (Auto) 0.
--- NOTE | 2023-01-06 09:00 | ECG_ITS ---
Measurements Intervals [place] Rate: 47 P: 92 [place]: 209 QRS: -8 QRSD: 80 T: 8 QT: 491 QTc: 436 Interpretive Statements SINUS BRADYCARDIA COMPARED TO ECG 01/06/2023 07:14:02 SINUS BRADYCARDIA NOW PRESENT Electronically Signed On 01-06-2023 10:48:36 CDT by Amy Guevara M.D.
--- NOTE | 2023-01-06 09:00 | PM.IMHP ---
H&P: HPI History of Present Illness Date/Time: 01/06/23 09:00 Chief Complaint: Atrial fibrillation Narrative: 82-year-old with atrial fibrillation and T. 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 Migraine aura without headache Paroxysmal atrial fibrillation Unspecified vitamin D deficiency Surgical History Surgical History H/O lumpectomy 1992 H/O nasal septoplasty Hx of hysterectomy 1973 Family History Family History Mother Depression Family history of glaucoma Hypertension Patient's mother is , Onset Age: 94 Family history of cardiovascular disease Father Patient's father is Social History Social History Smoking status: Never smoker Alcohol intake: never Substance use: never Substance use type: does not use Lack of Transportation: No Lack of Food: Never True Current Housing: I Have Housing Concerned About Future Housing: No Difficulty Paying Gas/Electric Bills: No Difficulty Paying for Meds: No Currently Unemployed: No Education: High School Diploma/GED Difficulty w/ Childcare or Family Care: No Living arrangements: with family Gender identity (if verbalized by the patient): Female Sexual Orientation (if Verbalized by the Patient): Straight or Heterosexual Spiritual care concerns: No Meds Home Medications and Allergies Home Medications Medication Instructions Recorded Confirmed Type atorvastatin 20 mg tablet 20 mg PO DAILY 12/06/19 01/05/23 History losartan 50 mg tablet 50 mg PO DAILY 12/06/19 01/05/23 History rivaroxaban 20 mg tablet (Xarelto) See Rx Instructions .Route 01/11/22 01/05/23 Rx .COMPLEX #90 tabs pantoprazole 40 mg tablet,delayed 40 mg PO Q12HR #180 tabs 05/10/22 01/06/23 Rx release calcium acetate 667 mg tablet 667 mg PO ONCE 12/02/22 01/05/23 History metoprolol tartrate 25 mg tablet 50 mg PO BID 12/02/22 01/06/23 History dronedarone 400 mg tablet (Multaq) 400 mg PO BID 01/05/23 01/06/23 History polysorbate 80-glycerin 1 %-1 % 1 drp ophthalmic (eye) DAILY PRN 01/05/23 01/05/23 History eye drops Dry Eyes Allergies Allergy/AdvReac Type Severity Reaction Status Date / Time cefprozil Allergy Unknown Rash Verified 01/06/23 07:11 lisinopril AdvReac Mild Cough Verified 01/06/23 07:11 Vital Signs Vital Signs - 24 hr 01/06/23 07:19 Temperature 36.4 C Pulse Rate 77 Respiratory Rate 16 Blood Pressure 128/80 Pulse Oximetry 99 Oxygen Delivery Room Air Exam Narrative: Alert oriented Const: General: no acute distress HENMT: Face/Nose/Sinus: Normal nares present Eyes: Sclera: sclerae normal Resp: Effort & Inspection: normal respiratory effort Cardio: Rate: regular rate Rhythm: abnormal rhythm irregularly irregular GI: GI Palp: Yes Soft to palpation Neuro: Speech: normal speech H&P: Results Labs Labs: Short CBC 01/06/23 Range/Units 07:17 WBC 6.6 (4.5-10.0) K/mm3 Hgb 10.2 L (12.0-15.0) g/dL Hct 35.2 L (37.0-47.0) % Plt Count 316 (150-375) k/mm3 [facility] 01/06/23 07:17 Sodium 137 Potassium 4.5 Chloride 103 Carbon Dioxide 30 BUN 15 Creatinine 1.00 Glucose 93 Calcium 8.9 Assessment and Plan Assessment and plan (1) Paroxysmal atrial fibrillation: Code(s): I48.0 - Paroxysmal atrial fibrillation Status: Acute Assessment and Plan: Outpatient elective cardioversion with moderate sedation
--- NOTE | 2023-01-06 09:09 | P.PCNCVR_ITS ---
Cardioversion Cardioversion Date of procedure: 01/06/23 Procedure: Electrocardioversion Moderate sedation Pre-op diagnosis: Atrial fibrillation Post-op diagnosis: Same Indications: Atrial fibrillation Description of procedure: After discussing the risks, benefits alternatives to procedure patient agreeable via verbal and written informed consent. Risks discussed included adverse reaction anesthesia, , shocking into more problematic heart rhythm, she can undertaken or burn as well as stroke. After establishing continuous telemetry monitoring, pulse oxygenation and serial blood pressure assessments, time-out was taken procedure started. Procedure start time 9:04 a.m. Procedure stop time 9:07 a.m. Complications: None Blood loss: None A total of 2 mg of Versed and 25 mcg of fentanyl were given for sedation Medications were administered patient was monitored by Nikole Gomez RN Sedation: As detailed above. 2 mg Versed and 25 mcg fentanyl Findings: Successful zoroastrian of sinus rhythm from atrial fibrillation using 150 joules of synchronized biphasic energy Conclusion: 1. Moderate sedation 2. Successful zoroastrian of sinus rhythm from atrial fibrillation using 150 joules of synchronized biphasic energy
== END 2023-01-06 10:50 | disposition home or self-care (01) ==
PROVIDERS: PCP Family Medicine; Visit Provider Internal Medicine Cardiovascular Disease
PROC: 5A2204Z Restoration of Cardiac Rhythm, Single (ICD-10-PCS; principal; 2023-01-06 08:30)
DX: I48.0 Paroxysmal atrial fibrillation (principal); Z79.01 Long term (current) use of anticoagulants
CPT/HCPCS: 36415; 80048; 83735; 85025; 92960; J2250; J2310; J3010; J7030

== ENCOUNTER → 2023-04-28 14:45 | Outpatient (CLI) | payer MEDICARE, SELFPAY ==
--- NOTE | ~2023-04-28 | XR_ITS ---
XR lumbar spine min 4V DATE: 04/28/2023 15:13 INDICATION: Posterior right hip pain for 12 months. No injury. TECHNIQUE: AP, lateral, bilateral oblique views and coned lateral lumbosacral view COMPARISON: None FINDINGS: There is osteopenia. There is minimal levoscoliosis of the lumbar spine. There is degenerative change at the apophyseal joints in the mid and lower lumbar area, with minimal grade 1 anterolisthesis at L2-3 and L5-S1. There is multilevel degenerative disc disease, moderately prominent L3-4 and moderately severe at L4- 5 and L5-S1. No fracture or bone destruction is evident. The included lower thoracic and lumbar pedicles are intac t. The sacroiliac joints are intact. Abdominal aortic calcification without apparent aneurysm. IMPRESSION: Multilevel degenerative disc disease, most severe at L4-5 and L5-S1 Degenerative changes apophyseal joints; associated minimal grade 1 anterolisthesis at L2-3 and L5-S1 Reviewed, dictated and finalized at location A. IMPRESSION: Multilevel degenerative disc disease, most severe at L4-5 and L5-S1 Degenerative changes apophyseal joints; associated minimal grade 1 anterolisthe sis at L2-3 and L5-S1
--- NOTE | ~2023-04-28 | XR_ITS ---
XR femur RT min 2V DATE: 04/28/2023 15:13 INDICATION: Posterior right hip pain, leg pain for 12 months TECHNIQUE: AP and lateral views of right femur COMPARISON: None FINDINGS: Superior pole patellar enthesopathy at quadriceps tendon insertion. Patellofemoral osteoarthritis. Mild loss of medial compartment joint space at the knee joint. No fracture or dislocation, periosteal reaction or bone destruction of the right femur. IMPRESSION: Right knee osteoarthritis Reviewed, dictated and finalized at location A. IMPRESSION: Right knee osteoarthritis
--- NOTE | ~2023-04-28 | XR_ITS ---
XR hip RT 2V w AP pelvis DATE: 04/28/2023 15:13 INDICATION: Posterior right hip pain for 12 months. No injury. TECHNIQUE: AP pelvis. AP and lateral views of right hip. COMPARISON: None FINDINGS: Multilevel degenerative disc disease, including moderately severe L3-4 degenerative disease and severe degenerative disc disease at L4-5 and L5-S1. Normal alignment at the pubic symphysis and sacroiliac joints. No pelvic fracture or bone destruction . No fracture, dislocation, avascular necrosis or bone destruction of the right hip. Hip joint spaces a ppear symmetric and relatively preserved. IMPRESSION: No significant abnormality right hip Multilevel degenerative disc disease of the lumbar spine Reviewed, dictated and finalized at location A.
== END ==
PROVIDERS: PCP Family Medicine; Visit Provider Family Medicine
DX: M25.551 Pain in right hip (principal); M17.11 Unilateral primary osteoarthritis, right knee; M51.36 Other intervertebral disc degeneration, lumbar region
CPT/HCPCS: 72110; 73502; 73552

== ENCOUNTER → 2023-06-15 10:35 | Outpatient (CLI) | payer MEDICARE, SELFPAY ==
--- NOTE | ~2023-06-15 | MR_ITS ---
MRI of the lumbar spine Clinical History: Back pain Technique: Axial T2-weighted images, and sagittal T1-weighted, T2-weighted, and T2 fat-sat images wer e acquired. Findings: There is no fracture or subluxation of the lumbar spine. Vertebral bodies maintain normal h eight and alignment. No focal bone marrow signal reality seen. At L1-L2, there is minimal disc bulge and moderate facet arthropathy. No central canal stenosis or ne ural foraminal narrowing. At L2-L3, there is mild disc bulge and mild facet arthropathy. No central canal stenosis or neural fo raminal narrowing. At L3-L4, there is degenerative disc narrowing. There is disc bulge and moderate facet arthropathy. N o central canal stenosis. There is moderate bilateral neural foraminal narrowing, left worse than rig ht. At L4-L5, there is degenerative disc narrowing. There is disc bulge and moderate facet arthropathy. N o central canal stenosis. There is mild bilateral neural foraminal narrowing. At L5-S1, there is minimal disc bulge and moderate facet arthropathy. No central canal stenosis. Ther e is minimal right neural foraminal narrowing. Paravertebral soft tissues are unremarkable. Impression: Mild degenerative spondylosis overall, as detailed above. Reviewed, dictated and finalized at location . Impression: Mild degenerative spondylosis overall, as detailed above.
== END ==
PROVIDERS: PCP Family Medicine; Visit Provider Family Medicine
DX: R29.898 Other symptoms and signs involving the musculoskeletal system (principal); M47.817 Spondylosis without myelopathy or radiculopathy, lumbosacral region
CPT/HCPCS: 72148

== ENCOUNTER 2023-08-22 00:58 | Day surgery (SDC) | payer MEDICARE, SELFPAY ==
[2023-08-19 19:29] VITALS: BMI 25.7
[2023-08-22] VITALS (8 sets, daily range): BP systolic 113–143; BP diastolic 66–79; PULSE 69–88; RESP 12–20; TEMP 36.8; O2SAT 97–100; BMI 27.0
--- NOTE | 2023-08-22 08:30 | ECG_ITS ---
Measurements Intervals [place] Rate: 59 P: 90 [place]: 220 QRS: -4 QRSD: 84 T: 13 QT: 449 QTc: 448 Interpretive Statements SINUS BRADYCARDIA WITH FIRST DEGREE AV BLOCK ATRIAL PREMATURE COMPLEX BORDERLINE ECG COMPARED TO ECG 08/22/2023 08:47:43 SINUS BRADYCARDIA NOW PRESENT FIRST DEGREE AV BLOCK NOW PRESENT Electronically Signed On 08-22-2023 10:32:20 [employer]ANE [employer]IN ATTENDANT by Christopher Berg D.O.
[2023-08-22 09:12] LABS: Anion Gap 7 mmol/L (8-16); Blood Urea Nitrogen 14 mg/dL (7-17); Calcium 9.4 mg/dL (8.4-10.2); Carbon Dioxide 27 mmol/L (22-30); Chloride 102 mmol/L (98-107); Estimated CRCL calculation 30 ml/min; Estimated Glomerular Filt Rate 47; Glucose 95 mg/dL (65-110); Magnesium 2.1 mg/dL (1.6-2.3); Potassium 4.2 mmol/L (3.4-5.0); Sodium 136 mmol/L (137-145)
--- NOTE | 2023-08-22 09:59 | WPDMODSED ---
Moderate Sedation Note-Pt Data Patient Data Diagnosis: Atrial fibrillation Present Complaint: Atrial fibrillation Procedure to be performed/Plan: Electric cardioversion, moderate sedation Allergies Allergy/AdvReac Type Severity Reaction Status Date / Time cefprozil Allergy Unknown Rash Verified 08/22/23 08:47 lisinopril AdvReac Mild Cough Verified 08/22/23 08:47 Home Medications Medication Instructions Recorded Confirmed Type atorvastatin 20 mg tablet 20 mg PO HS 12/06/19 08/19/23 History losartan 50 mg tablet 50 mg PO HS 12/06/19 08/19/23 History dronedarone 400 mg tablet (Multaq) 400 mg PO BID 01/05/23 08/19/23 History polysorbate 80-glycerin 1 %-1 % 1 drp ophthalmic (eye) DAILY PRN 01/05/23 08/19/23 History eye drops Dry Eyes pantoprazole 40 mg tablet,delayed 40 mg PO Q12HR #180 tabs 05/02/23 08/19/23 Rx release calcium citrate 200 mg (950 mg) 200 mg PO DAILY 08/19/23 08/19/23 History tablet metoprolol tartrate 25 mg tablet 50 mg PO BID 08/19/23 08/19/23 History rivaroxaban 20 mg tablet (Xarelto) 20 mg PO DAILY 08/19/23 08/19/23 History Current Medications: Active Medications Sodium Chloride (Normal Saline Iv) 1,000 mls @ 30 mls/hr IV CONT .Q24H ONESIMO Sedation/Anesthesia: No previous sedation/anesthesia problems (including family history). 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 headache Paroxysmal atrial fibrillation Unspecified vitamin D deficiency Surgical History Surgical History H/O lumpectomy 1992 H/O nasal septoplasty Hx of hysterectomy 1973 Family History Family History Mother Depression Family history of glaucoma Hypertension Patient's mother is , Onset Age: 94 Family history of cardiovascular disease Father Patient's father is Social History Social History (Reviewed 04/28/23 @ 13:35 by JUAN Fitzgerald Smoking packs per day: 0 Smoking cigarettes per day: 0.0 Smoking status: Never smoker Second hand tobacco smoke exposure: Yes (as child) Alcohol intake: never Substance use: never Substance use type: does not use Lack of Transportation: No Lack of Food: Never True Current Housing: I Have Housing Concerned About Future Housing: No Difficulty Paying Gas/Electric Bills: No Difficulty Paying for Meds: No Currently Unemployed: No Education: High School Diploma/GED Difficulty w/ Childcare or Family Care: No Living arrangements: with family Additional living arrangements comments: lives with Gender identity (if verbalized by the patient): Female Sexual Orientation (if Verbalized by the Patient): Straight or Heterosexual Spiritual care concerns: No Mod Sed Physical Exam Physical Exam Pre Procedural Exam: Normal: Appearance, Eyes, Ears, Nose, Neck, Throat, Airway, Lungs, Heart Size, Heart Rate, Neuro Exam, Abdomen, Extremities and Skin and Variation: Heart Rhythm (Irregularly irregular) Hours since solid foods: 12 Hours since liquid intake: 12 Mallampati Classification: class II Internal Medicine - PN: Obj Da Vital Signs Vital Signs: Vital Signs - 24 hr 08/22/23 08:54 Temperature 36.8 C Pulse Rate 84 Respiratory Rate 12 Blood Pressure 135/67 Pulse Oximetry 97 Oxygen Delivery Room Air Meds/Results Medications: Active Medications Generic Name Dose Route Start Last Admin Trade Name Freq PRN Reason Stop Dose Admin Sodium Chloride 1,000 mls @ 30 mls/hr 08/22/23 08:30 Normal Saline Iv IV CONT .Q24H ONESIMO Labs 08/22/23 08:51 Labs: Laboratory Results - last 24 hr 08/22/23 08:51 Sodium 136 L Potassium 4.2 Chloride 10
--- NOTE | 2023-08-22 10:19 | WPDCARDVER ---
Cardioversion Cardioversion Date of procedure: 08/22/23 Procedure: 1. Electrical cardioversion 2. moderate sedation Pre-op diagnosis: Atrial fibrillation Post-op diagnosis: Same Indications: Atrial fibrillation Description of procedure: After discussing the risks, benefits alternatives of procedure and the patient agreeable via verbal and written informed consent. Risks discussed included skin irritation or burn, shocking into more problematic heart rhythm, adverse reaction anesthesia, , stroke. After time-out was taken and after establishing continuous telemetry monitoring, pulse oxygenation and serial blood pressure assessments, procedure was initiated. Procedure start time 10:06 a.m. Procedure stop time 10:11 a.m. Complications: None Blood loss: None Medications were administered patient was monitored high Evon Rojas RN Medications given: 2 mg of Versed and 25 mcg of fentanyl for moderate sedation Atrial fibrillation was confirmed on 150 joules of biphasic synchronized energy was used after patient was sedated. This restored sinus rhythm Sedation: As detailed above: 2 mg of Versed, 25 mcg of fentanyl IV for moderate sedation Findings: 1. Successful latter-day of sinus rhythm from atrial fibrillation using 150 joules of biphasic synchronized energy 2. Moderate sedation Conclusion: 1. Successful latter-day of sinus rhythm from atrial fibrillation using 150 joules of biphasic synchronized energy 2. Moderate sedation
--- NOTE | 2023-08-22 10:30 | ECG_ITS ---
Measurements Intervals [place] Rate: 92 P: [place]: 0 QRS: 0 QRSD: 82 T: 44 QT: 381 QTc: 474 Interpretive Statements ATRIAL FIBRILLATION FREQUENTVENTRICULAR PREMATURE COMPLEXES RSR' IN V1 OR V2, PROBABLY NORMAL VARIANT ABNORMAL ECG COMPARED TO ECG 01/06/2023 09:12:24 ATRIAL FIBRILLATION NOW PRESENT PREMATURE VENTRICULAR COMPLEXES NOW PRESENT Electronically Signed On 08-22-2023 8:55:40 [employer]ICE DRIER by Christopher Berg D.O.
== END 2023-08-22 11:35 | disposition home or self-care (01) ==
PROVIDERS: PCP Family Medicine; Visit Provider Internal Medicine Cardiovascular Disease
PROC: 5A2204Z Restoration of Cardiac Rhythm, Single (ICD-10-PCS; principal; 2023-08-22 10:00)
DX: I48.91 Unspecified atrial fibrillation (principal); E78.5 Hyperlipidemia, unspecified; Z79.01 Long term (current) use of anticoagulants
CPT/HCPCS: 36415; 80048; 83735; 92960; J2250; J3010; J7030

== ENCOUNTER 2023-11-30 15:33 | Outpatient (CLI) | payer MEDICARE, SELFPAY ==
[2023-11-30 19:07] LABS: Iron 22 ug/dL (37-170)
[2023-11-30 19:18] LABS: Basophils Absolute Auto 0.1 K/mm3 (0.0-0.1); Basophils Percent Auto 1.7 % (0.2-1.2); Eosinophils Absolute Auto 0.2 K/mm3 (0-0.3); Eosinophils Percent Auto 3.7 % (0-4.4); Hematocrit 29.1 % (37.0-47.0); Hemoglobin 7.5 g/dL (12.0-15.0); Immature Granulocyte Absolute 0.02 K/mm3 (0.00-0.031); Immature Granulocyte Percent A 0.3 % (0-0.5); Immature Platelet Fraction Pct 2.7 % (0.9-11.2); Immature Reticulocyte Fraction 27.1 % (3.0-15.9); Lymphocytes Absolute Auto 1.98 K/mm3 (0.9-3.2); Lymphocytes Percent Auto 30.2 % (18.3-44.2); Mean Corpuscular HGB Conc 25.8 g/dl (32-36); Mean Corpuscular Hemoglobin 17.4 pg (26-34); Mean Corpuscular Volume 67.7 fl (80-100); Mean Platelet Volume 9.2 fl (7.4-10.4); Monocytes Absolute Auto 1.1 K/mm3 (0.1-0.6); Monocytes Percent Auto 16.9 % (2.6-8.5); Neutrophils Absolute Auto 3.1 K/mm3 (1.3-6.7); Neutrophils Percent Auto 47.2 % (45.5-73.1); Percent Iron Saturation 4 % (20-50); Platelet Count Result 362 k/mm3 (150-375); Red Cell Distribution Width 20.2 % (11.5-14.5); Reticulocyte Hemoglobin Conten 14.9 pg (28.2-35.7); Reticulocyte Percent 1.78 % (0.7-4.3); Reticulocytes Absolute 0.08 M/mm3 (0.02-0.1); White Blood Count 6.6 K/mm3 (4.5-10.0)
[2023-11-30 19:38] LABS: Hepatitis B Surface Antigen Negative (Negative)
[2023-11-30 19:43] LABS: Ferritin 4.12 ng/mL (11.1-264)
[2023-11-30 19:44] LABS: HAV RESULT Negative (Negative); Hepatitis B Core IgM Result Negative (Negative)
[2023-11-30 19:55] LABS: Hepatitis C Virus Antibody Negative (Negative)
[2023-11-30 20:35] LABS: Platelet Estimate Adequate (Adequate); Schistocytes None Seen (NORMAL)
[2023-11-30 20:36] LABS: Anisocytosis 3+ (NORMAL); Hypochromasia 2+ (NORMAL)
== END 2023-11-30 15:34 | disposition home or self-care (01) ==
LOC: ANHGOSHLAB 15:34
PROVIDERS: PCP Family Medicine; Visit Provider Family Medicine
DX: D62 Acute posthemorrhagic anemia (principal); I48.0 Paroxysmal atrial fibrillation; R53.83 Other fatigue; R74.01 Elevation of levels of liver transaminase levels
CPT/HCPCS: 36415; 80074; 82728; 83540; 83550; 84443; 85025; 85046; 85055

== ENCOUNTER 2023-12-02 11:10 | Outpatient (NON) | payer MEDICARE, SELFPAY ==
[2023-12-02 19:06] LABS: IFOB Positive Control Positive; Immunochemical Fecal Occult Bl Positive (N)
== END 2023-12-02 11:11 | disposition home or self-care (01) ==
LOC: ANHGOSHLAB 11:12
PROVIDERS: PCP Family Medicine; Visit Provider Family Medicine
DX: D64.9 Anemia, unspecified (principal); Z92.29 Personal history of other drug therapy
CPT/HCPCS: 82274

== ENCOUNTER 2023-12-08 13:21 | Emergency (ER) | payer MEDICARE, SELFPAY ==
--- NOTE | ~2023-12-08 | CT_ITS ---
EXAMINATION: CT abdomen pelvis w con DATE: 12/08/2023 18:40 INDICATION: Anemia. Blood in stool. TECHNIQUE: Computed tomography (CT) of the abdomen and pelvis was performed with 100 mL Omnipaque 350 intravenous contrast. Automated exposure control and iterative reconstruction technique were employe d. The dose-length product was 382.92 mGy-cm. COMPARISON: None. FINDINGS: The visualized portions of the lung bases demonstrate mild atelectasis. Calcified right araseli g nodules and calcified mediastinal lymph nodes are consistent with old granulomatous disease. No ple ural effusion. There is biatrial enlargement of the heart. There are coronary artery calcifications. No pericardial effusion. Calcifications in the liver and spleen are consistent with old granulomatous disease. The gallbladder, pancreas, adrenal glands, and kidneys are normal. There is calcified ather osclerosis of the aorta and many of the other arteries. There are no dilated loops of bowel. The appe ndix is normal. There are no pathologically enlarged lymph nodes. There is no free intraperitoneal fl uid. There is severe thoracic and lumbar spondylosis. IMPRESSION: 1. No etiology for blood in stool. Reviewed, dictated and finalized at location E. DOCTOR
[2023-12-08 13:29] VITALS: BP 119/65; PULSE 90; RESP 16; TEMP 36.3; O2SAT 98
[2023-12-08 13:36] LABS: Basophils Absolute Auto 0.1 K/mm3 (0.0-0.1); Basophils Percent Auto 1.5 % (0.2-1.2); Eosinophils Absolute Auto 0.2 K/mm3 (0-0.3); Eosinophils Percent Auto 3.6 % (0-4.4); Hematocrit 29.7 % (37.0-47.0); Hemoglobin 7.6 g/dL (12.0-15.0); Immature Granulocyte Absolute 0.02 K/mm3 (0.00-0.031); Immature Granulocyte Percent A 0.4 % (0-0.5); Lymphocytes Absolute Auto 1.68 K/mm3 (0.9-3.2); Lymphocytes Percent Auto 31.8 % (18.3-44.2); Mean Corpuscular HGB Conc 25.6 g/dl (32-36); Mean Corpuscular Hemoglobin 17.3 pg (26-34); Mean Corpuscular Volume 67.5 fl (80-100); Mean Platelet Volume 8.3 fl (7.4-10.4); Monocytes Absolute Auto 0.8 K/mm3 (0.1-0.6); Monocytes Percent Auto 15.9 % (2.6-8.5); Neutrophils Absolute Auto 2.5 K/mm3 (1.3-6.7); Neutrophils Percent Auto 46.8 % (45.5-73.1); Platelet Count Result 357 k/mm3 (150-375); Red Cell Distribution Width 20.4 % (11.5-14.5); White Blood Count 5.3 K/mm3 (4.5-10.0)
[2023-12-08 13:43] LABS: Anisocytosis 1+ (NORMAL); Hypochromasia 1+ (NORMAL); Ovalocytes 1+ (NORMAL); Platelet Estimate Adequate (Adequate)
[2023-12-08 13:44] LABS: Microcytosis 1+ (NORMAL); Schistocytes None Seen (NORMAL)
[2023-12-08 13:47] LABS: Alanine Aminotransferase 18 U/L (6-35); Albumin Level 4.5 g/dL (3.5-5.1); Alkaline Phosphatase 57 U/L (38-126); Anion Gap 4 mmol/L (8-16); Aspartate Amino Transferase 28 U/L (14-36); Bilirubin,Total 0.6 mg/dL (0.2-1.3); Blood Urea Nitrogen 18 mg/dL (7-17); Calcium 9.5 mg/dL (8.4-10.2); Carbon Dioxide 28 mmol/L (22-30); Chloride 104 mmol/L (98-107); Estimated CRCL calculation 34 ml/min; Estimated Glomerular Filt Rate 53; Glucose 88 mg/dL (65-110); Potassium 3.9 mmol/L (3.4-5.0); Sodium 136 mmol/L (137-145)
[2023-12-08 13:48] LABS: INR 1.1; Prothrombin Time 15.2 Seconds (11.1-14.7)
[2023-12-08 13:49] LABS: Partial Thromboplastin Time 28.1 SECONDS (22.3-36.8)
--- NOTE | 2023-12-08 14:53 | ED.GIBLEED ---
HPI - GI Bleed General Chief complaint: GI Bleed <Storm Espinosa APRN - Last Filed: 12/08/23 15:03> Stated complaint: Gi bleed <Storm Espinosa APRN - Last Filed: 12/08/23 15:03> Time Seen by Provider: 12/08/23 14:53 <Storm Espinosa APRN - Last Filed: 12/08/23 15:03> Focused HPI: Yadi is an 83-year-old female patient presenting to the ER today with complaints of weakness, off balance, and shortness of breath. She reports that she did an occult blood stool and it was positive. History of a duodenal ulcer in the past. Hemoglobin is 7.6 and hematocrit is 29.7 today. Takes xarelto for atrial fibrillation-she held her dose last night. Dr. Bonilla sent patient into the ER for evaluation. GENERAL: Pale-appearing, well-nourished, and in no acute distress. HEAD: Normocephalic, atraumatic. Pale conjunctiva CHEST: Clear to auscultation. No respiratory distress. HEART: Regular rate and rhythm. NEURO: Alert and oriented x3. Patient screened in triage and initial orders placed. Additional care and disposition to be based upon diagnostic testing and treatment. <Storm Espinosa APRN - Last Filed: 12/08/23 15:03> Source: patient and family () <She Alvarez MD - Last Filed: 12/09/23 09:53> History of Present Illness HPI Narrative: Patient presents to the ED with concerns for GI bleeding. No visible bright red blood per rectum, hematochezia, or melena but patient was noted to have a hemoglobin of 7.9 on labs drawn 3 or 4 days ago and submitted a stool sample which she states was loose. Denies hematuria, hemoptysis, hematemesis, vaginal bleeding. She notes feeling fatigued and gets short of breath with exertion. PCP Dr Bonilla advised she stop taking her Xarelto which she takes for atrial fibrillation; stopped yesterday. 4 years ago patient had a bleeding ulcer. She has had an EGD performed by Dr Harrington but has never had a colonoscopy. LBM was this morning, she does occasionally have to strain including today but not yesterday. Denies abdominal pain. <She Alvarez MD - Last Filed: 12/09/23 09:53> Related Data Home medications: Home Medications Medication Instructions Recorded Confirmed atorvastatin 20 mg tablet 20 mg PO HS 12/06/19 12/08/23 losartan 50 mg tablet 50 mg PO HS 12/06/19 12/08/23 polysorbate 80-glycerin 1 %-1 % 1 drp ophthalmic (eye) DAILY PRN 01/05/23 12/08/23 eye drops Dry Eyes calcium citrate 200 mg (950 mg) 200 mg PO DAILY 08/19/23 12/08/23 tablet rivaroxaban 20 mg tablet (Xarelto) 20 mg PO DAILY 08/19/23 12/08/23 metoprolol tartrate 25 mg tablet 75 mg PO Q12H 11/30/23 12/08/23 <Storm Espinosa APRN - Last Filed: 12/08/23 15:03> Allergies/Adverse reactions: Allergies Allergy/AdvReac Type Severity Reaction Status Date / Time cefprozil Allergy Unknown Rash Verified 12/08/23 16:12 lisinopril AdvReac Mild Cough Verified 12/08/23 16:12 <Storm Espinosa APRN - Last Filed: 12/08/23 15:03> [facility] Past Medical History Medical History: Medical History Acute blood loss anemia Bunion 1970 Cancer of breast 1991 Gastric ulcer 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
--- NOTE | 2023-12-08 14:54 | PC.NURSE ---
Patient takes blood thinner for a-fib and was advised to stop taking it yesterday due to the blood in stool.
[2023-12-08 16:15] VITALS: BP 168/116; PULSE 87; RESP 19; O2SAT 100
[2023-12-08 16:16] VITALS: BP 168/116; PULSE 99; RESP 19; O2SAT 100
[2023-12-08 17:01] VITALS: BP 149/92; PULSE 84; RESP 14; O2SAT 99
[2023-12-08 19:15] VITALS: PULSE 103; RESP 16; O2SAT 98
--- NOTE | 2023-12-08 19:21 | PC.NURSE ---
this rn assumed care of patient. this rn took patient report from NARAYAN Scruggs.
[2023-12-08 19:36] VITALS: BP 145/83; PULSE 99; RESP 23; O2SAT 100
== END 2023-12-08 19:36 | disposition home or self-care (01) ==
PROVIDERS: Student in an Organized Health Care Education/Training Program; Emergency Provider Student in an Organized Health Care Education/Training Program; PCP Family Medicine
DX: D50.9 Iron deficiency anemia, unspecified (principal); I48.0 Paroxysmal atrial fibrillation; Z79.01 Long term (current) use of anticoagulants; Z79.899 Other long term (current) drug therapy; Z85.3 Personal history of malignant neoplasm of breast
CPT/HCPCS: 36415; 74177; 80053; 85025; 85610; 85730; 86850; 86900; 86901; 99284; Q9967

== ENCOUNTER 2023-12-15 14:28 | Outpatient (CLI) | payer MEDICARE, SELFPAY ==
[2023-12-15 14:54] LABS: Basophils Absolute Auto 0.1 K/mm3 (0.0-0.1); Basophils Percent Auto 1.7 % (0.2-1.2); Eosinophils Absolute Auto 0.2 K/mm3 (0-0.3); Eosinophils Percent Auto 3.8 % (0-4.4); Hematocrit 30.1 % (37.0-47.0); Hemoglobin 7.8 g/dL (12.0-15.0); Immature Granulocyte Absolute 0.02 K/mm3 (0.00-0.031); Immature Granulocyte Percent A 0.3 % (0-0.5); Lymphocytes Absolute Auto 2.02 K/mm3 (0.9-3.2); Lymphocytes Percent Auto 31.8 % (18.3-44.2); Mean Corpuscular HGB Conc 25.9 g/dl (32-36); Mean Corpuscular Hemoglobin 17.8 pg (26-34); Mean Corpuscular Volume 68.9 fl (80-100); Mean Platelet Volume 8.2 fl (7.4-10.4); Monocytes Percent Auto 15.9 % (2.6-8.5); Neutrophils Percent Auto 46.5 % (45.5-73.1); Platelet Count Result 291 k/mm3 (150-375); Red Blood Count 4.37 M/mm3 (4.2-5.4); Red Cell Distribution Width 22.7 % (11.5-14.5); White Blood Count 6.4 K/mm3 (4.5-10.0)
[2023-12-15 14:58] LABS: Hypochromasia 2+; Platelet Estimate Adequate (Adequate); Schistocytes None Seen
[2023-12-15 14:59] LABS: Anisocytosis 2+; Crenated RBC 1+; Microcytosis 2+ (NORMAL); Ovalocytes 1+
[2023-12-15 15:00] LABS: Poikilocytosis 2+
[2023-12-15 16:19] LABS: Iron 21 ug/dL (37-170)
[2023-12-15 16:29] LABS: Percent Iron Saturation 4 % (20-50)
[2023-12-15 16:56] LABS: Ferritin 7.28 ng/mL (11.1-264)
[2023-12-15 17:13] LABS: Alanine Aminotransferase 17 U/L (6-35); Albumin Level 4.5 g/dL (3.5-5.1); Alkaline Phosphatase 66 U/L (38-126); Anion Gap 7 mmol/L (8-16); Aspartate Amino Transferase 26 U/L (14-36); Bilirubin,Total 0.5 mg/dL (0.2-1.3); Blood Urea Nitrogen 16 mg/dL (7-17); Calcium 9.4 mg/dL (8.4-10.2); Carbon Dioxide 27 mmol/L (22-30); Chloride 104 mmol/L (98-107); Estimated Glomerular Filt Rate 53; Glucose 105 mg/dL (65-110); Lactate Dehydrogenase 184 U/L (120-246); Potassium 4.3 mmol/L (3.4-5.0); Sodium 138 mmol/L (137-145)
[2023-12-15 18:18] LABS: Folic Acid > 20.0 ng/mL (2.76->20)
[2023-12-18 08:27] LABS: Methylmalonic Acid 267 nmol/L (87-318)
[2023-12-24 10:56] LABS: Soluble Transferrin Receptor 7.31 mg/L (0.76-1.76)
== END 2023-12-15 14:29 | disposition home or self-care (01) ==
LOC: ANHLAB 14:30
PROVIDERS: Nurse Practitioner Family; PCP Family Medicine; Visit Provider Internal Medicine Hematology & Oncology
DX: D64.9 Anemia, unspecified (principal)
CPT/HCPCS: 36415; 80053; 82607; 82728; 82746; 83540; 83550; 83615; 83921; 84238; 85025

== ENCOUNTER 2024-01-05 00:31 | Day surgery (SDC) | payer MEDICARE, SELFPAY ==
[2024-01-02 10:14] VITALS: BMI 25.7
--- NOTE | 2024-01-04 07:23 | SUR.PREOP ---
0700 called patient regarding her upcoming procedure. patient said she took her blood thinner yesterday morning when I asked her. Explained to patient that we received the cardiac clearance late yesterday afternoon. Told the patient I would double check with Dr. Harrington first thing this morning to make sure it was ok that she had taken her blood thinner yesterday morning. and I would call her back. Inforced with patient not to eat any solid foods until she heard back from me and that I planned on calling her back before 745 this morning. Also mentioned not to take any creamer with her coffee this morning. Patient voiced understanding. [address] Harrington directly regarding patient and her taking her blood thinner yesterday morning and if he was ok with proceeding with her procedure tomorrow late afternoon. Dr Harrington was ok with proceeding 724 Called patient back, told her we would proceed with doing her procedures tomorrow. Discussed arrival time, the prep, clear liquid diet, not to take any more of her blood thinner and that we would let her know after her procedures when she could resume that. She did tell me that she hadn't taken her blood thinner since Tuesday during our conversation this time. Patient voiced understanding.
--- NOTE | 2024-01-05 08:54 | WPDANESEPPF ---
Anes - Initial Pre Proc Eval Procedure: Operation Date: 01/05/24 14:00 Proposed Procedures p Esophagogastroduodenoscopy & Colonoscopy - Joey Nava MD Date/Time: 01/05/24 08:54 Surgeon: Joey Nava MD Pre Op Diagnosis: Other fecal abnormalities, Post hemorrhagic anemia Patient Data Age: 83 Gender: F Height: 1.68 m Weight: 72.5 kg Allergies Allergy/AdvReac Type Severity Reaction Status Date / Time lisinopril Allergy Intermediate Cough Verified 01/05/24 13:01 cefprozil Allergy Unknown Rash Verified 01/05/24 13:01 Home Medications Medication Instructions Recorded Confirmed Type atorvastatin 20 mg tablet 20 mg PO HS 12/06/19 01/05/24 History pantoprazole 40 mg tablet,delayed 40 mg PO Q12HR #180 tabs 10/25/23 01/05/24 Rx release losartan 50 mg tablet 50 mg PO HS #90 tabs 12/12/23 01/05/24 Rx rivaroxaban 20 mg tablet (Xarelto) 10 mg PO DAILY 12/29/23 01/05/24 History ferrous sulfate 325 mg (65 mg 325 mg PO DAILY 01/02/24 01/05/24 History iron) tablet (iron) metoprolol tartrate 50 mg tablet 75 mg PO BID 01/02/24 01/05/24 History Patient hx anesthesia problems: none Family hx anesthesia problems: none Results Review: All pre-operative results and documents have been reviewed as part of the pre-operative evaluation. 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 Migraine aura without headache Occult blood in stools Paroxysmal atrial fibrillation Unspecified atrial fibrillation Unspecified vitamin D deficiency Surgical History Surgical History H/O lumpectomy 1992 H/O nasal septoplasty Hx of hysterectomy 1973 Family History Family History Mother Depression Family history of glaucoma Hypertension Patient's mother is , Onset Age: 94 Family history of cardiovascular disease Father Patient's father is Social History Social History Smoking packs per day: 0 Smoking cigarettes per day: 0.0 Smoking status: Never smoker Second hand tobacco smoke exposure: Yes (as child) Alcohol intake: never Substance use: never Substance use type: does not use Lack of Transportation: No Lack of Food: Never True Current Housing: I Have Housing Concerned About Future Housing: No Difficulty Paying Gas/Electric Bills: No Difficulty Paying for Meds: No Currently Unemployed: No Education: High School Diploma/GED Difficulty w/ Childcare or Family Care: No Living arrangements: with family Additional living arrangements comments: lives with Gender identity (if verbalized by the patient): Female Sexual Orientation (if Verbalized by the Patient): Straight or Heterosexual Spiritual care concerns: No Anes - Eval Final PreProcedure Day of Procedure 01/05/24 08:54 Patient weight: overweight Heart: regular rate and rhythm Lungs: clear to auscultation Airway: Mallampati scale class II Neurological: alert and oriented Last oral intake: >/= 8 hours ASA classification: III Emergent: no Anesthetic plan: proceed Anesthesia type and monitoring: general GIVS and standard monitoring Results Review: All pre-operative results and documents have been reviewed as part of the pre-operative evaluation. Informed Consent: The patient's anesthetic plan and its attendant risks and benefits were discussed with the patient/family/POA. Questions were solicited and answers provided to the satisfaction of the patient/family/POA.
[2024-01-05 13:04] VITALS: BP 160/88; PULSE 107; RESP 16; TEMP 36.1; O2SAT 100
[2024-01-05] MEDS: LACTATED RINGERS 1,000 ML 150 ML IV CONT (13:11)
--- NOTE | 2024-01-05 13:55 | WPDHPUPDATE1 ---
History and Physical Update Update Date/Time: 01/05/24 13:55 History and Physical has been reviewed, including an updated exam of the patient. There are NO changes in the patient's condition. Risks, benefits, and alternatives have been discussed and questions answered. Patient agrees to proceed with procedure.
--- NOTE | 2024-01-05 14:04 | SUR.OPER ---
EGD: START-140 END- 1419 COLON: START-1425 END-1431
[2024-01-05 14:43] VITALS: BP 126/91; PULSE 101; RESP 26; O2SAT 94
[2024-01-05 14:53] VITALS: BP 140/86; PULSE 88; RESP 24; O2SAT 95
[2024-01-05 15:03] VITALS: BP 141/102; PULSE 102; RESP 22; O2SAT 96
== END 2024-01-05 15:26 | disposition home or self-care (01) ==
PROVIDERS: PCP Family Medicine; Visit Provider Internal Medicine Gastroenterology
PROC: 0DJ08ZZ Inspection of Upper Intestinal Tract, Via Natural or Artificial Opening Endoscopic (ICD-10-PCS; CPT 43235; principal; 2024-01-05 14:00)
DX: R19.5 Other fecal abnormalities (principal); D12.2 Benign neoplasm of ascending colon; K64.8 Other hemorrhoids; D13.2 Benign neoplasm of duodenum; K44.9 Diaphragmatic hernia without obstruction or gangrene; K29.70 Gastritis, unspecified, without bleeding; K31.7 Polyp of stomach and duodenum; E55.9 Vitamin D deficiency, unspecified; I48.0 Paroxysmal atrial fibrillation; Z79.01 Long term (current) use of anticoagulants; Z98.890 Other specified postprocedural states; Z85.3 Personal history of malignant neoplasm of breast; Z86.79 Personal history of other diseases of the circulatory system; Z82.49 Family history of ischemic heart disease and other diseases of the circulatory system
CPT/HCPCS: 43255; 43251; 45380; 88305; J2001; J2704; J7120

== ENCOUNTER 2024-02-23 13:29 | Outpatient (CLI) | payer MEDICARE, SELFPAY ==
[2024-02-23 18:12] LABS: Basophils Absolute Auto 0.1 K/mm3 (0.0-0.1); Basophils Percent Auto 1.3 % (0.2-1.2); Eosinophils Absolute Auto 0.3 K/mm3 (0-0.3); Eosinophils Percent Auto 4.5 % (0-4.4); Hematocrit 45.1 % (37.0-47.0); Hemoglobin 13.3 g/dL (12.0-15.0); Immature Granulocyte Absolute 0.01 K/mm3 (0.00-0.031); Immature Granulocyte Percent A 0.1 % (0-0.5); Lymphocytes Absolute Auto 2.33 K/mm3 (0.9-3.2); Lymphocytes Percent Auto 34.7 % (18.3-44.2); Mean Corpuscular HGB Conc 29.5 g/dl (32-36); Mean Corpuscular Hemoglobin 27.1 pg (26-34); Mean Corpuscular Volume 91.9 fl (80-100); Mean Platelet Volume 9.8 fl (7.4-10.4); Monocytes Absolute Auto 0.8 K/mm3 (0.1-0.6); Monocytes Percent Auto 11.9 % (2.6-8.5); Neutrophils Absolute Auto 3.2 K/mm3 (1.3-6.7); Neutrophils Percent Auto 47.5 % (45.5-73.1); Platelet Count Result 211 k/mm3 (150-375); Red Blood Count 4.91 M/mm3 (4.2-5.4); Red Cell Distribution Width 20.5 % (11.5-14.5); White Blood Count 6.7 K/mm3 (4.5-10.0)
== END 2024-02-23 13:30 | disposition home or self-care (01) ==
LOC: ANHGOSHLAB 13:31
PROVIDERS: PCP Family Medicine; Visit Provider Family Medicine
DX: D64.9 Anemia, unspecified (principal); D62 Acute posthemorrhagic anemia
CPT/HCPCS: 36415; 85025

== ENCOUNTER 2024-03-08 14:43 | Outpatient (CLI) | payer MEDICARE, SELFPAY ==
--- NOTE | ~2024-03-08 | XR_ITS ---
AP and lateral views of the left tibia/fibula Clinical History: Trauma Findings: No acute fracture or dislocation is seen. Osseous alignment is anatomic. Joint spaces are p reserved without significant erosive or degenerative change. There is soft tissue edema about the ank le. Impression: No fracture or dislocation. Soft tissue edema about the ankle. Reviewed, dictated and finalized at [facility]. Impression: No fracture or dislocation. Soft tissue edema about the ankle.
--- NOTE | ~2024-03-08 | XR_ITS ---
Left ankle Technique: AP, oblique, and lateral views were obtained. Clinical History: Status post fall Findings: No acute fracture or dislocation is seen. Osseous alignment is anatomic. Ankle mortise and other visualized joint spaces are preserved. Soft there is mild soft tissue swelling at the ankle. Impression: No fracture or dislocation. Soft tissue swelling. Reviewed, dictated and finalized at location . Impression: No fracture or dislocation. Soft tissue swelling.
== END 2024-03-08 14:44 ==
PROVIDERS: PCP Family Medicine; Visit Provider Family Medicine
DX: S99.912A Unspecified injury of left ankle, initial encounter (principal); M79.89 Other specified soft tissue disorders
CPT/HCPCS: 73590; 73610

== ENCOUNTER 2024-03-22 13:53 | Outpatient (CLI) | payer MEDICARE, SELFPAY ==
[2024-03-22 15:52] LABS: Anion Gap 9 mmol/L (4-12); Blood Urea Nitrogen 15 mg/dL (7-17); Calcium 9.8 mg/dL (8.4-10.2); Carbon Dioxide 28 mmol/L (22-30); Chloride 103 mmol/L (98-107); Estimated Glomerular Filt Rate 43; Glucose 102 mg/dL (65-110); Lactate Dehydrogenase 201 U/L (120-246); Potassium 4.1 mmol/L (3.4-5.0); Sodium 140 mmol/L (137-145)
[2024-03-22 15:59] LABS: Iron 93 ug/dL (37-170)
[2024-03-22 16:23] LABS: Percent Iron Saturation 27 % (20-50)
[2024-03-22 17:38] LABS: Folic Acid > 20.0 ng/mL (2.76->20)
[2024-03-25 07:52] LABS: Methylmalonic Acid 383 nmol/L (85-423)
== END 2024-03-22 13:54 | disposition home or self-care (01) ==
LOC: ANHLAB 13:55
PROVIDERS: PCP Family Medicine; Visit Provider Internal Medicine Hematology & Oncology
DX: D64.9 Anemia, unspecified (principal)
CPT/HCPCS: 36415; 80048; 82607; 82728; 82746; 83540; 83550; 83615; 83921; 84238

== ENCOUNTER 2024-03-26 10:43 | Outpatient (CLI) | payer MEDICARE, SELFPAY ==
[2024-03-26 10:56] LABS: Basophils Absolute Auto 0.1 K/mm3 (0.0-0.1); Basophils Percent Auto 1.3 % (0.2-1.2); Eosinophils Absolute Auto 0.1 K/mm3 (0-0.3); Eosinophils Percent Auto 2.1 % (0-4.4); Hematocrit 46.3 % (37.0-47.0); Hemoglobin 14.3 g/dL (12.0-15.0); Immature Granulocyte Absolute 0.01 K/mm3 (0.00-0.031); Immature Granulocyte Percent A 0.2 % (0-0.5); Lymphocytes Absolute Auto 1.39 K/mm3 (0.9-3.2); Mean Corpuscular HGB Conc 30.9 g/dl (32-36); Mean Corpuscular Hemoglobin 28.7 pg (26-34); Monocytes Absolute Auto 0.7 K/mm3 (0.1-0.6); Monocytes Percent Auto 11.5 % (2.6-8.5); Neutrophils Percent Auto 62.9 % (45.5-73.1); Platelet Count Result 179 k/mm3 (150-375); Red Blood Count 4.98 M/mm3 (4.2-5.4); Red Cell Distribution Width 14.8 % (11.5-14.5); White Blood Count 6.3 K/mm3 (4.5-10.0)
== END 2024-03-26 10:44 | disposition home or self-care (01) ==
PROVIDERS: Nurse Practitioner Family; PCP Family Medicine; Visit Provider Internal Medicine Hematology & Oncology
DX: D64.9 Anemia, unspecified (principal)
CPT/HCPCS: 36415; 85025

== ENCOUNTER 2024-07-27 10:18 | Outpatient (CLI) | payer MEDICARE, SELFPAY ==
[2024-07-27 10:57] LABS: Basophils Absolute Auto 0.1 K/mm3 (0.0-0.1); Basophils Percent Auto 1.3 % (0.2-1.2); Eosinophils Absolute Auto 0.2 K/mm3 (0-0.3); Eosinophils Percent Auto 3.8 % (0-4.4); Hematocrit 46.2 % (37.0-47.0); Hemoglobin 14.4 g/dL (12.0-15.0); Immature Granulocyte Absolute 0.02 K/mm3 (0.00-0.031); Immature Granulocyte Percent A 0.4 % (0-0.5); Lymphocytes Absolute Auto 1.38 K/mm3 (0.9-3.2); Lymphocytes Percent Auto 29.2 % (18.3-44.2); Mean Corpuscular HGB Conc 31.2 g/dl (32-36); Mean Corpuscular Hemoglobin 30.3 pg (26-34); Mean Corpuscular Volume 97.1 fl (80-100); Monocytes Absolute Auto 0.5 K/mm3 (0.1-0.6); Monocytes Percent Auto 11.4 % (2.6-8.5); Neutrophils Absolute Auto 2.6 K/mm3 (1.3-6.7); Neutrophils Percent Auto 53.9 % (45.5-73.1); Platelet Count Result 225 k/mm3 (150-375); Red Blood Count 4.76 M/mm3 (4.2-5.4); Red Cell Distribution Width 13.6 % (11.5-14.5); White Blood Count 4.7 K/mm3 (4.5-10.0)
[2024-07-27 13:34] LABS: Iron 102 ug/dL (37-170)
[2024-07-27 13:38] LABS: Anion Gap 10 mmol/L (4-12); Blood Urea Nitrogen 11 mg/dL (7-17); Calcium 9.6 mg/dL (8.4-10.2); Carbon Dioxide 31 mmol/L (22-30); Chloride 100 mmol/L (98-107); Estimated Glomerular Filt Rate 59; Glucose 115 mg/dL (65-110); Potassium 4.2 mmol/L (3.4-5.0); Sodium 141 mmol/L (137-145)
[2024-07-27 13:44] LABS: Percent Iron Saturation 33 % (20-50)
[2024-07-27 14:57] LABS: Folic Acid > 20.0 ng/mL (2.76->20)
== END 2024-07-27 10:19 | disposition home or self-care (01) ==
LOC: ANHLAB 10:20
PROVIDERS: Nurse Practitioner Family; PCP Family Medicine; Visit Provider Internal Medicine Hematology & Oncology
DX: D50.9 Iron deficiency anemia, unspecified (principal)
CPT/HCPCS: 36415; 80048; 82607; 82728; 82746; 83540; 83550; 85025

== ENCOUNTER 2025-07-26 10:26 | Outpatient (CLI) | payer MEDICARE, SELFPAY ==
[2025-07-26 10:50] LABS: Hematocrit 46.6 % (37.0-47.0); Hemoglobin 14.4 g/dL (12.0-15.0); Mean Corpuscular HGB Conc 30.9 g/dl (32-36); Mean Corpuscular Hemoglobin 30.4 pg (26-34); Mean Corpuscular Volume 98.3 fl (80-100); Platelet Count Result 203 k/mm3 (150-375); Red Blood Count 4.74 M/mm3 (4.2-5.4); White Blood Count 5.5 K/mm3 (4.5-10.0)
--- OUTSIDE RECORDS SUMMARY | 2025-07-26 10:51 | XMS_ITS | Clinical Summary ---
Author Organization [facility] [place] [address] Address [address] [place] [address] Care Team Providers Care Photo Intern Name Role Phone Ankur Bonilla MD Primary Care Provider [phone] Allergies Active Allergy Reactions Criticality Noted Date Comments Cefprozil Hives Medium 10/26/2017 Medications azelastine (OPTIVAR) 0.05 % ophthalmic solution instill 1 drop by ophthalmic route 2 times every day into affected eye(s) [address] (PROTONIX) 40 mg EC tablet 1 Active triamcinolone (KENALOG) 0.1 % cream APPLY TOPICALLY TO THE AFFECTED AREA FOUR TIMES DAILY 3 Active FeroSuL 325 mg (65 mg iron) tablet Take 1 tablet (325 mg total) by mouth 2 (two) times a day Active atorvastatin (LIPITOR) 20 mg tabletIndicatio ns:Hyperlipidem ia LDL goal <130 TAKE 1 TABLET(20 MG) BY MOUTH DAILY 90 tablet 3 4 Active Xarelto 20 mg tablet TAKE 1 TABLET(20 MG) BY MOUTH DAILY WITH DINNER 90 tablet 3 4 Active Multaq 400 mg tablet Take 1 tablet (400 mg total) by mouth 2 (two) times a day with meals 180 tablet 3 5 Active metoprolol tartrate (LOPRESSOR) 50 mg immediate release tabletIndicatio ns:PAF (paroxysmal atrial fibrillation) TAKE 2 TABLETS(100 MG) BY MOUTH TWICE DAILY 360 tablet 1 5 Active losartan (COZAAR) 50 mg tablet TAKE 1 TABLET(50 MG) BY MOUTH DAILY 90 tablet 1 5 Active Active Problems Problem Noted Date Diagnosed Date PRIDE (dyspnea on exertion) 01/15/2021 Bilateral lower extremity edema 01/15/2021 Essential hypertension 05/02/2018 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 Overview (01/06/2017): Left atrial enlargement PAF (paroxysmal atrial fibrillation) 05/18/2016 Overview (01/06/2017): Paroxysmal atrial fibrillation Diastolic dysfunction 05/18/2016 Overview (01/06/2017): Diastolic dysfunction without heart failure [facility] current use of anticoagulant therapy 0 05/18/2016 Overview (01/06/2017): Chronic anticoagulation Hyperlipidemia LDL goal <130 05/18/2016 Overview (01/06/2017): Hyperlipidemia LDL goal <130 Encounters Date Type Department Care Team Description 06/19/2025 1:15 PM CDT Office Visit [facility] [address] [place] [address] Jai Minaya MD PAF (paroxysmal atrial fibrillation) (Primary Dx); Left atrial enlargement; Hyperlipidemia LDL goal <130; Essential hypertension; 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 from Last 3 Months Medical History Medical History Date Comments Hx Other Medical PAF, hyperlipid emia, history of breast cancer stat; Comments: MAF 05/18/2016 - Family History Medical History Relation Name Comments Other Father Unknown; Other Mother CVA; Relation Name Status Comments Father Mother Social History Tobacco Use Types Packs/Day Years Used Date Smoking Tobacco: Never Smokeless Tobacco: Never Tobacco Cessation:Counseling Given: Not Answered Alcohol Use Standard Drinks/Week Comments No 0 (1 standard drink = 0.6 oz pur e alcohol) Comments Unknown Sex and Gender Information Value Date Recorded Sex Assigned at Not on file 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 Gender Identity Not on file Sexual Orientation Not on file Obstetrics History Last Filed Vital Signs Vital Sign Reading Time Taken Comments Blood Pressure 142/68 06/19/2025 1:13 PM CDT Pulse 70 06/19/2025 1:13 PM CDT Temperature - - Respiratory Rate 16 04/20/2017 1:17 PM CDT Oxygen Saturation 97% 06/19/2025 1:13 PM CDT Inhaled Oxygen Concentration - - Weight 64.6 kg (142 lb 8 oz) 06/19/2025 1:13 PM CDT Height 165.1 cm (5' 5) 06/19/2025 1:13 PM CDT Body Mass Index 23.71 06/19/2025 1:13 PM CDT Plan of Treatment Health Maintenance Due Date Last Done Comments Depression Screening 1938 Fall Risk Assessment 1940 Osteoporosis Screening-Bone Density Scan 1938 Hepatitis B Screening 1956 Zoster Vaccine (1 of 2) 1988 Well Visit 65+ 2003 DTaP/Tdap/Td Vaccine (1 - Tdap) 07/21/2010 0 Influenza Vaccine (#1) 2025 0, 07/04/2019, 06/28/2018, Additional history exists Pneumococcal vaccine 65+ Completed 01/08/2015, 05/[address] [place] [address] UHC MEDICARE ADVANTAGE [facility] MEDICARE Address: [facility] [address] [place] [address] [place] [address] [employer]HC MEDICARE ADVANTAGE Care Teams Photo Intern Relationship Specialty Start Date End Date Ankur Bonilla MD PCP - General 01/03/17
--- OUTSIDE RECORDS SUMMARY | 2025-07-26 10:51 | XMS_ITS | Clinical Summary ---
Author Organization [facility] Address [address] [place] [address] Phone Care Team Providers Care Contract Coordinator Name Role Phone Ankur Bonilla MD Primary Care Provider [phone]- [phone] Allergies Active Allergy Reactions Criticality Noted Date Comments Cefprozil Hives 11/21/2017 Medications lisinopril (PRINIVIL, ZESTRIL) 10 MG Tablet TK 1 T PO QHS 0 09/20/2017 Active metoprolol tartrate (LOPRESSOR) 50 MG Tablet 11/02/2017 Active raNITIdine (ZANTAC) 300 MG Tablet TK 1 T PO QHS 1 08/03/2017 Active XARELTO 20 MG Tablet 10/30/2017 Active simvastatin (ZOCOR) 20 MG Tablet 11/01/2017 Active Social History Tobacco Use Types Packs/Day Years Used Date Smoking Tobacco: Never Smokeless Tobacco: Never Alcohol Use Standard Drinks/Week Comments No 0 (1 standard drink = 0.6 oz pur e alcohol) Comments No Sex and Gender Information Value Date Recorded Sex Assigned at Not on file Legal Sex Female 9:09 PM CDT Gender Identity Not on file Sexual Orientation Not on file Last Filed Vital Signs Vital Sign Reading Time Taken Comments Blood Pressure 130/78 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 Pulse 72 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 Temperature - - Respiratory Rate 14 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 Oxygen Saturation 95% 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 Inhaled Oxygen Concentration - - Weight 73.9 kg (163 lb) 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 Height 166.4 cm (5' 5.5) 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 Body Mass Index 26.71 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 Plan of Treatment Health Maintenance Due Date Last Done Comments Hepatitis C Virus (HCV) Screening 1940 TdaP Immunization 1938 Pneumococcal Immunization (5 0+ years) (1 of 1 - PCV) 1988 Zoster Immunization (1 of 2) 1988 Respiratory Syncytial Virus (RSV) Immunization (Adult) (1 - 1-dose 75+ series) 2013 Influenza Immunization (#1) 2025 SARS-COV-2 Immunization ( - season) 2025 Hepatitis B Immunization Aged Out No longer eligible based on patient's age to complete this topic Human Papillomavirus (HPV) Immunization Aged Out No longer eligible b ased on patient's age to complete this topic Meningococcal Immunization (ACWY) Aged Out No longer eligible based on patient's age to complete this topic Rotavirus Immunization Aged Out No lo nger eligible based on patient's age to complete this topic Insurance MEDICARE Care Teams Contract Coordinator Relationship Specialty Start Date End Date Ankur Bonilla MD [address] [place] [address] [address] [place] [address] PCP - General Family Medicine 11/21/17
[2025-07-26 13:43] LABS: Iron 110 ug/dL (37-170)
[2025-07-26 14:02] LABS: Percent Iron Saturation 37 % (20-50)
[2025-07-26 14:25] LABS: Ferritin 31.70 ng/mL (11.1-264)
[2025-07-26 14:32] LABS: Vitamin B12 417.0 pg/mL (239-931)
== END 2025-07-26 10:27 | disposition home or self-care (01) ==
LOC: ANHLAB 10:27
PROVIDERS: PCP Family Medicine; Visit Provider Internal Medicine Hematology & Oncology
DX: D64.9 Anemia, unspecified (principal)
CPT/HCPCS: 36415; 82607; 82728; 83540; 83550; 85027